=== PATIENT | female | born 1985 | race Hispanic/Latino ===

== ENCOUNTER 2021-04-28 00:35 | Emergency (ER) | payer SELFPAY ==
[2021-04-28 02:40] LABS: Absolute Lymphocytes (CBC) 0.9 K/uL (0.7-4.9); Hematocrit 40.5 % (36.0-45.0); Lymphocytes % 10.5 % (15.3-44.8); MPV 7.6 fL (7.6-11.3)
[2021-04-28 02:41] LABS: Urine Blood 1+ (Negative); Urine Glucose Negative (Negative); Urine Protein 1+ (Negative); Urine Specific Gravity >=1.030 (1.005-1.030)
[2021-04-28 02:44] LABS: Urine Specific Gravity/Preg >1.030 (1.005-1.030)
[2021-04-28] MEDS ORDERED: NA CHLORIDE 0.9% 1,000 ML ONE (02:50)
[2021-04-28] MEDS ORDERED: ONDANSETRON 4 MG/2 ML VIAL ONE (02:50)
[2021-04-28] MEDS ORDERED: FAMOTIDINE 20 MG/2 ML VIAL IV ONE (02:50)
[2021-04-28 02:57] LABS: ALT/SGPT 26 U/L (12-78); AST/SGOT 21 U/L (15-37); Albumin 3.6 g/dL (3.4-5.0); Alkaline Phosphatase 77 U/L (45-117); BUN Blood Urea Nitrogen 15 mg/dL (7-18); Bicarbonate 22 mmol/L (21-32); Bilirubin Total 0.4 mg/dL (0.2-1.0); Glucose Level 97 mg/dL (74-106); Lipase 86 U/L (73-393); Potassium 3.5 mmol/L (3.5-5.1); Protein, Total 7.7 g/dL (6.4-8.2); Sodium Level 139 mmol/L (136-145)
[2021-04-28 03:17] LABS: Urine Bacteria 20-50 /HPF (<20); Urine Mucus 1+ /HPF (NONE SEEN)
--- NOTE | 2021-04-28 04:21 | ER ---
Nurse's Notes [facility] Name: Chelsey Dso Santos Age: 35 yrs Sex: Female : 1985 Arrival Date: 04/28/2021 Time: 00:41 Bed 5 Private MD: Diagnosis: Diarrhea, unspecified;Nausea with vomiting, unspecified Presentation: 04/28 01:02 Chief complaint: Patient states: via language line, "I threw up 2 times today, I also vc1 am nauseous, have diarrhea, bodyaches and a headache.". Coronavirus screen: Vaccine status: Patient reports receiving the 2nd dose of the covid vaccine. no booster, pfizer diarrhea, headache, muscle pain, vomiting. Client presents with at least one sign or symptom that may indicate coronavirus-19. Standard/surgical mask placed on the client. Provider contacted for isolation considerations. Ebola Screen: No symptoms or risks identified at this time. Initial Sepsis Screen: Does the patient meet any 2 criteria? No. Patient's initial sepsis screen is negative. Does the patient have a suspected source of infection? No. Patient's initial sepsis screen is negative. Risk Assessment: Do you want to hurt yourself or someone else? Patient reports no desire to harm self or others. Onset of symptoms was April 28, 2021. 01:02 Method Of Arrival: Ambulatory vc1 01:02 Acuity: LANCE 3 vc1 Triage Assessment: 01:06 General: Appears in no apparent distress. uncomfortable, Behavior is calm, cooperative, vc1 appropriate for age. Pain: Complains of pain in abdomen Also complains of nausea. GI: Reports lower abdominal pain, upper abdominal pain, diarrhea, nausea, vomiting. 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 - Social history:: Smoking status: Patient denies any tobacco usage or history of. Screenin:37 Abuse screen: Denies threats or abuse. Nutritional screening: No deficits noted. st1 Tuberculosis screening: No symptoms or risk factors identified. Fall Risk None identified. No fall in past 12 months (0 pts). No secondary diagnosis (0 pts). No IV (0 pts). Ambulatory Aid- None/Bed Rest/Nurse Assist (0 pts). Gait- Normal/Bed Rest/Wheelchair (0 pts) Mental Status- Oriented to own ability (0 pts). Total Maxwell Fall Scale indicates No Risk (0-24 pts). Assessment: 01:37 GI: Reports nausea, vomiting. st1 04:03 GI: Abdomen is flat, Bowel sounds present X 4 quads. kd3 Vital Signs: 01:00 BP 126 / 76; Pulse 67; Resp 18; Pulse Ox 99% on R/A; st1 01:02 BP 119 / 88; Pulse 90; Resp 18; Temp 98.8; Pulse Ox 99% ; Weight 58.97 kg; Height 4 ft. vc1 11 in. (149.86 cm); 02:00 BP 125 / 68; Pulse 75; Resp 16; Pulse Ox 99% on R/A; st1 04:59 BP 126 / 81; Pulse 73; Resp 16; Pulse Ox 100% on R/A; st1 01:02 Body Mass Index 26.26 (58.97 kg, 149.86 cm) vc1 ED Course: 00:41 Patient arrived in ED. wm 01:06 Triage completed. vc1 01:07 Arm band placed on right wrist. vc1 01:37 No provider procedures requiring assistance completed. st1 01:43 Aiden Sandoval PA is PHCP. cp 01:43 Paco Rich MD is Attending Physician. cp 01:51 Anay Philippe, MADELEINE is Primary Nurse. kd3 02:19 assistant plant controller was called to interpret for AMEENA Sandoval and the RN. st1 02:42 Urine Microscopic Only Sent. st1 02:42 Lipase Sent. st1 02:42 CMP Sent. st1 02:42 CBC with Diff Sent. st1 03:39 CT Abd/Pelvis - IV Contrast Only In Process Unspecified. EDMS 03:54 COVID-19/FLU A+B (Document "Date of Onset" if Symptomatic) Sent. st1 05:03 Patient has correct armband on for positive identification. Bed in low position. Call st1 light in reach. Side rails up X 1. Pulse ox on. NIBP on. 05:03 IV discontinued, intact, bleeding controlled, No redness/swelling at site. Pressure st1 dressing applied. Administered Medications: 02:52 Drug: NS 0.9% 1000 ml Route: IV; Rate: 1 bolus; Site: right antecubital; st1 05:04 Follow up: Response: No adverse reaction st1 05:05 Follow up: IV Intake: 1000ml st1 05:05 Follow up: Response: No adverse reaction st1 02:52 Drug: Pepcid (famotidine) 20 mg Route: IVP; Site: right antecubital; st1 05:04 Follow up: Response: No adverse reaction st1 02:52 Drug: Zofran (Ondansetron) 4 mg Route: IVP; Site: right antecubital; st1 05:04 Follow up: Response: No adverse reaction st1 04:31 Drug: LoMOTIL (diphenoxylate-atropine) 2 tabs Route: PO; kd3 05:05 Follow up: Response: No adverse reaction st1 Intake: 05:05 IV: 1000ml; Total: 1000ml. st1 Outcome: 04:20 Discharge ordered by . cp 05:02 Discharged to home ambulatory, with family. st1 05:02 Condition: good 05:02 Discharge instructions given to patient, family, Instructed on discharge instructions, follow up and referral plans. no drinking with medication, medication usage. 05:06 Patient left the ED. st1 Signatures: Dispatcher [employer] EDMS Aiden Sandoval PA PA cp Marsh, Wendy wm Doucette, Kyli, RN RN kd3 Prema Eubanks RN RN st1 Candice Jarrett RN RN vc1 Corrections: (The following items were deleted from the chart) 05:02 03/17 21:00 BP 150 / 73; Pulse 65bpm; Resp 16bpm; Pulse Ox 100% RA; st1 st1
--- NOTE | 2021-04-28 04:21 | EDPHYS ---
Physician Documentation [facility] Name: Chelsey Dos Santos Age: 35 yrs Sex: Female : 1985 Arrival Date: 04/28/2021 Time: 00:41 Bed 5 Private MD: ED Physician Paco Rich HPI: 04/28 02:25 This 35 yrs old Female presents to ER via Ambulatory with complaints of cp Nausea/Vomiting/Diarrhea, Headache, Arm Pain - Left. 02:25 The patient presents to the emergency department with nausea, that is moderate, cp vomiting, that is intermittent, diarrhea, that is intermittent, abdominal pain, of the abdomen diffusely. Onset: The symptoms/episode began/occurred yesterday. Possible causes: sick contacts, by family, father, mother. Associated signs and symptoms: Pertinent positives: headache, left arm pain, Pertinent negatives: constipation, fever, GI bleeding. 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 - Social history:: Smoking status: Patient denies any tobacco usage or history of. ROS: 02:30 Constitutional: Negative for body aches, chills, fever, poor PO intake. cp 02:30 Cardiovascular: Negative for chest pain, edema, palpitations. cp 02:30 Respiratory: Negative for cough, shortness of breath, wheezing. 02:30 Abdomen/GI: Positive for abdominal pain, nausea, vomiting, and diarrhea, Negative for cp constipation, black/tarry stool, rectal bleeding. 02:30 ENT: Negative for drainage from ear(s), ear pain, sore throat, difficulty swallowing, cp difficulty handling secretions. 02:30 Back: Negative for radiated pain. 02:30 : Negative for urinary symptoms. 02:30 MS/extremity: Positive for pain, of the left arm, Negative for injury or acute deformity, paresthesias. 02:30 Neuro: Positive for headache, Negative for altered mental status, numbness, weakness. 02:30 All other systems are negative. Exam: 02:35 Constitutional: The patient appears in no acute distress, alert, awake, non-toxic, well cp developed, well nourished. 02:35 Head/Face: Normocephalic, atraumatic. cp 02:35 Eyes: Periorbital structures: appear normal, Conjunctiva: normal, no exudate, no injection, Sclera: no appreciated abnormality, Lids and lashes: appear normal, bilaterally. 02:35 ENT: External ear(s): are unremarkable, Nose: is normal, Mouth: Lips: moist, Oral mucosa: moist, Posterior pharynx: Airway: no evidence of obstruction, patent. 02:35 Neck: ROM/movement: is normal, is supple, without pain, no range of motions limitations, Lymph nodes: no appreciated lymphadenopathy. 02:35 Chest/axilla: Inspection: normal. 02:35 Cardiovascular: Rate: normal, Rhythm: regular. 02:35 Respiratory: the patient does not display signs of respiratory distress, Respirations: normal, no use of accessory muscles, no retractions, labored breathing, is not present, Breath sounds: are clear throughout, no decreased breath sounds, no stridor, no wheezing. 02:35 Abdomen/GI: Inspection: abdomen appears normal, Bowel sounds: active, all quadrants, Palpation: soft, in all quadrants, mild abdominal tenderness, in all quadrants. 02:35 Back: pain, is absent, ROM is normal. 02:35 Neuro: Orientation: to person, place \\T\\ time. Mentation: is normal, Motor: moves all fours, strength is normal, Sensation: is normal. Vital Signs: 01:00 BP 126 / 76; Pulse 67; Resp 18; Pulse Ox 99% on R/A; st1 01:02 BP 119 / 88; Pulse 90; Resp 18; Temp 98.8; Pulse Ox 99% ; Weight 58.97 kg; Height 4 ft. vc1 11 in. (149.86 cm); 02:00 BP 125 / 68; Pulse 75; Resp 16; Pulse Ox 99% on R/A; st1 04:59 BP 126 / 81; Pulse 73; Resp 16; Pulse Ox 100% on R/A; st1 01:02 Body Mass Index 26.26 (58.97 kg, 149.86 cm) vc1 MDM: 01:54 Patient medically screened. cp 03:00 Differential diagnosis: Nonspecific abd pain, gastritis, cholecystitis, appendicitis, cp viral gastroenteritis, gastroenteritis. 04:18 Data reviewed: vital signs, nurses notes, lab test result(s), radiologic studies, CT cp scan. Response to treatment: the patient's symptoms have markedly improved after treatment, and as a result, I will discharge patient. 04:20 Counseling: I had a detailed discussion with the patient and/or guardian regarding: the cp historical points, exam findings, and any diagnostic results supporting the discharge/admit diagnosis, lab results, to return to the emergency department if symptoms worsen or persist or if there are any questions or concerns that arise at home. 04:20 Special discussion: Based on the patient's Hx, exam, and Dx evaluation, there is no cp indication for emergent surgery or inpatient Tx. It is understood by the patient/guardian that if the Sx's persist or worsen they need to return immediately for re-evaluation. 04/28 02:18 Order name: CBC with Diff; Complete Time: 03:18 cp 04/28 03:18 Interpretation: Normal except: RUBIN% 77.3; LYM% 10.5. cp 04/28 02:18 Order name: CMP; Complete Time: 03:18 cp 04/28 03:19 Interpretation: Normal except: CL 110; CA 8.4; GLOB 4.1. cp 04/28 02:18 Order name: Lipase; Complete Time: 03:18 cp 04/28 02:18 Order name: Urine Microscopic Only; Complete Time: 03:42 cp 04/28 03:42 Interpretation: Normal except: UWBC 5-10; URBC 5-10; UBACT 20-50; SQEPI 20-50. cp 04/28 02:41 Order name: Urine Dipstick-Ancillary; Complete Time: 03:18 EDMS 04/28 03:18 Interpretation: Normal except: UKET Trace; UBLD 1+; UPROT 1+. cp 04/28 02:41 Order name: Urine --Ancillary (enter results); Complete Time: 03:18 mw2 04/28 02:18 Order name: CT Abd/Pelvis - IV Contrast Only cp 04/28 02:18 Order name: IV Saline Lock; Complete Time: 02:42 cp 04/28 02:18 Order name: Labs collected and sent; Complete Time: 02:42 cp 04/28 03:18 Order name: COVID-19/FLU A+B (Document "Date of Onset" if Symptomatic) cp 04/28 02:18 Order name: Urine Dipstick-Ancillary (obtain specimen); Complete Time: 02:42 cp 04/28 02:18 Order name: Urine Test (obtain specimen); Complete Time: 02:42 cp 04/28 04:21 Order name: PO challenge; Complete Time: 04:31 cp Administered Medications: 02:52 Drug: NS 0.9% 1000 ml Route: IV; Rate: 1 bolus; Site: right antecubital; st1 05:04 Follow up: Response: No adverse reaction st1 05:05 Follow up: IV Intake: 1000ml st1 05:05 Follow up: Response: No adverse reaction st1 02:52 Drug: Pepcid (famotidine) 20 mg Route: IVP; Site: right antecubital; st1 05:04 Follow up: Response: No adverse reaction st1 02:52 Drug: Zofran (Ondansetron) 4 mg Route: IVP; Site: right antecubital; st1 05:04 Follow up: Response: No adverse reaction st1 04:31 Drug: LoMOTIL (diphenoxylate-atropine) 2 tabs Route: PO; kd3 05:05 Follow up: Response: No adverse reaction st1 Disposition: 07:40 Co-signature as Attending Physician, Paco Rich MD I agree with the assessment and kdr plan of care. Disposition Summary: 04/28/21 04:20 Discharge Ordered Location: Home cp Problem: new cp Symptoms: have improved cp Condition: Stable cp Diagnosis - Diarrhea, unspecified cp - Nausea with vomiting, unspecified cp Followup: cp - With: Private Physician - When: 1 - 2 days - Reason: Worsening of condition Discharge Instructions: - Form - Excuse from Work, School, or Physical Activity bb - Discharge Summary Sheet cp - Food Choices to Help Relieve Diarrhea, Adult cp - Diarrhea, Adult cp - Nausea and Vomiting, Adult cp Forms: - Medication Reconciliation Form cp - Thank You Letter cp - Antibiotic Education cp - Prescription Opioid Use cp - Family Work Release bb Prescriptions: - Zofran 4 mg Oral Tablet - take 1 tablet by ORAL route every 12 hours As needed; 20 tablet; Refills: 0, cp Product Selection Permitted Signatures: Dispatcher [employer] Paco Hernandez MD MD kdr Aiden Sandoval PA PA cp Doucette, Kyli RN RN kd3 Prema Eubanks RN RN st1 Candice Jarrett RN RN vc1 Corrections: (The following items were deleted from the chart) 03:19 03:18 Normal except: CL 110. cp cp
[2021-04-28] MEDS ORDERED: DIPHENOX/ATROP SULF 1 TAB PO ONE (04:34)
[2021-04-28 04:44] LABS: SARS-COV-2 RT PCR NEGATIVE (NEGATIVE)
[2021-04-28 08:13] VITALS: TEMP 98.8
[2021-04-28 08:16] VITALS: BP 126/81; O2SAT 100
--- NOTE | 2021-04-28 11:55 | RAD REPORT ---
EXAM DESCRIPTION: CT - Abdomen Pelvis W Contrast - 04/28/2021 6:12 am CLINICAL HISTORY: 35 years, Female, ABD PAIN COMPARISON: None. TECHNIQUE: Contrast-enhanced images of the abdomen and pelvis were performed utilizing 5 mm slice th ickness at 5 mm interval reconstruction from the lung bases to the ischial tuberosities after the adm inistration IV contrast. In addition multiplanar reformats in the coronal and sagittal plane were obtained and reviewed. This exam was performed according to our departmental dose-optimization protocol, which includes auto mated exposure control, adjustment of the mA and/or kV according to patient size and/or use of iterat carlos reconstruction technique. FINDINGS: The lung bases demonstrate to be clear. There are minimal dependent atelectatic changes po sterior CP angles The liver, gallbladder, pancreas, spleen and adrenal glands demonstrate to be unremarkable, no focal lesions are noted. The kidneys demonstrate normal uptake of contrast media. No evidence for nephrolithiasis and/or hydro nephrosis. Grossly the unopacified stomach, small bowel and large bowel demonstrate to be within normal limits. There is no evidence for bowel dilatation and/or free air. There is fluid-filled large bowel in mos t its entirety perhaps suggesting the possibility of intermittent diarrhea. The appendix is normal. The urinary bladder demonstrate to be unremarkable. The uterus demonstrate the presence of a tiny l eft mid body anterior parenchymal measuring 1.1 cm perhaps corresponding to a uterine fibroid. There are no adnexal masses. The aorta demonstrate to be normal. Incidentally is noted presence of a retr ocardiac left renal vein There is no retroperitoneal lymphadenopathy. There is no evidence for asci tao or and/or significant abnormal fluid collections. The rest of the soft tissue and bony structures are within normal limits. IMPRESSION: Fluid-filled large bowel in most its entirety perhaps suggesting the possibility of inte rmittent diarrhea. Small uterine fibroid. Otherwise unremarkable CT scan of the abdomen and pelvis with contrast. Electronically signed by: Lane Peng MD 04/28/2021 4:08 AM CDT Due to temporary technical issues with the PACS/Fluency reporting system, reports are being signed by the in house radiologist without review as a courtesy to ensure prompt reporting. The interpreting r adiologist is fully responsible for the content of the report.
== END 2021-04-28 05:06 | disposition home or self-care (01) ==
LOC: ER 00:35
DX: R11.2 Nausea with vomiting, unspecified (principal); R19.7 Diarrhea, unspecified; R51.9 Headache, unspecified; M79.602 Pain in left arm; Z20.822 Contact with and (suspected) exposure to COVID-19
CPT/HCPCS: 0240U; 36415; 74177; 80053; 81003; 81015; 81025; 83690; 85025; 96374; 96375; 99284; J2405; J7030; Q9967

== ENCOUNTER 2023-12-17 16:25 | Emergency (ER) | payer SELFPAY ==
--- OUTSIDE RECORDS SUMMARY | 2023-12-17 16:29 | XMS REPORT | Continuity of Care Document ---
Author Name Unknown Address [address] [facility] [address] [place] [address] [facility] thconnect Address [address] [facility] 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 Role Phone Deya Farmer CNM Primary Care Physician + Doctor Unassigned, [place] Attending Clinician U navailable Virginia Coulter Attending Clinician + VIRGINIA NAVARRO Attending Clinician Unavail able Virginia Coulter Attending Clinician + DEYA FARMER Attending Clinician Deya Lovell CNM Attending Clinician [phone] Visit, Margarita Nurse Attending Clinician Unava iljuan josé Doctor Unassigned, [place] Attending Clinician U maryailjuan josé [facility] Attending Clini CHELSEY Christy Attending Clinician Unavailable [facility] Zulma praveena Dorado SHOER, Chelsey Attending Clinician [phone] Lavell SALVADOR, Kota Attending Clinician Unavailab AARON Benites Attending Clinician UnavailHolland KING, Jeff Melendze Attending Clinician + [phone] JEFF COPELAND Attending Clinician Unavailab mejia Akers MD, Ирина Attending Clinician + [facility] Attending Clinician Un available Jonny Medrano MD Attending Clinician [phone] Payers Payer Name Policy Type Policy Number Effective Date Expirati on Date Source Problems Condition Name Condition Details Condition Category Status Onset Date Resolution Date Last Treatment Date Treating Clinician Comments Source Need for HPV vaccinatio n Need for HPV vaccinatio n Disease Active 3- 00:00: 00 [facility] Other general counseling and advice for contracept carlos management Other general counseling and advice for contracept carlos management Disease Active 9- 00:00: 00 [facility] History of abnormal cervical Pap smear History of abnormal cervical Pap smear Disease Active - 00:00: 00 Overview: Formattin g of this note might be different from the original. 2016 negative PAP +[id number] negative PAP +[id number] negative PAP +HPV, negative [id number] negative PAP and [id number] negative PAP and HPV, repeat [address] [facility] Abnormal glandular Papanicola ou smear of cervix Abnormal glandular Papanicola ou smear of cervix Disease Active 5- 00:00: 00 [facility] Encounter for surveillan ce of contracept carlos pills Encounter for surveillan ce of contracept carlos pills Disease Active 5-06 00:00: 00 [facility] Overweight (BMI 25.0-29.9) Overweight (BMI 25.0-29.9) Disease Active 8-16 00:00: 00 [facility] Bilateral deafness Bilateral deafness Disease Active 2013-02 1-04 00:00: 00 Overview: Formattin g of this note might be different from the original. Due to fever in childhood . Patient with interpret er [facility] Well woman exam Well woman exam Disease Resolve d 06-16 00:00: 00 2022-06-23 00:00:00 2022-06-23 13:12:30 [facility] Cervical high risk human papillomav irus (HPV) DNA test positive Cervical high risk human papillomav irus (HPV) DNA test positive Disease Resolve d 07-30 00:00: 00 2022-06-20 00:00:00 2022-06-20 09:10:58 Overview: Formattin g of this note might be different from the original. Needs repeat pap with co-testin g in 1 year (07/2018) [facility] Pain pelvic Pain pelvic Disease Resolve d 2013-02 00:00: 00 2022-06-20 00:00:00 2022-06-20 09:27:37 Overview: Formattin g of this note might be different from the original. ULTRASOUN D PELVIC COMPLETE - 01/15/14IM PRESSION: Unremarka ble pelvic ultrasoun d [facility] Single live Single live Disease Resolve d 2018- 3-26 00:00: 00 2018-06-16 00:00:00 2018-06-16 15:59:53 [facility] 39 weeks gestation of 39 weeks gestation of Disease Resolve d 2018- 3-25 00:00: 00 2018-06-16 00:00:00 2018-06-16 15:59:50 [facility] Labor and delivery indication for care or interventi on Labor and delivery indication for care or interventi on Disease Resolve d 2018-0 3-25 00:00: 00 2018-06-16 00:00:00 2018-06-16 16:00:01 [facility] Disease Resolve d 2018-0 3-25 00:00: 00 2018-06-16 00:00:00 2018-06-16 15:59:48 [facility] Normal spontaneou s vaginal delivery Normal spontaneou s vaginal delivery Disease Resolve d 2018-0 3-25 00:00: 00 2018-06-16 00:00:00 2018-06-16 15:59:58 [facility] Laceration , obstetrica l, second degree Laceration , obstetrica l, second degree Disease Resolve d 25 00:00: 00 2018-06-16 00:00:00 2018-06-16 16:02:52 [facility] Primigravi da in third trimester Primigravi da in third trimester Disease Resolve d 2017-02- 00:00: 00 2018-06-16 00:00:00 2018-06-16 15:59:55 [facility] Supervisio n of high risk , antepartum Supervisio n of high risk , antepartum Disease Resolve d 09-26 00:00: 00 2018-06-16 00:00:00 2018-06-16 16:02:49 [facility] UTI in , antepartum UTI in , antepartum Disease Resolve d 09-26 00:00: 00 2018-05-05 00:00:00 2018-05-05 07:50:19 [facility] Cervical high risk human papillomav irus (HPV) DNA test positive Cervical high risk human papillomav irus (HPV) DNA test positive Disease Resolve d 2016-0218 00:00: 00 2018-03-10 00:00:00 2018-03-10 12:59:50 [facility] Screening for STD (sexually transmitte d disease) Screening for STD (sexually transmitte d disease) Disease Resolve d 2016-02 00:00: 00 2018-03-10 00:00:00 2018-03-10 12:59:46 [facility] Rib pain on left side Rib pain on left side Disease Resolve d 06-15 00:00: 00 2017-07-23 00:00:00 2017-07-23 11:43:24 [facility] Dysmenorrh ea Dysmenorrh ea Disease Resolve d 02-16 00:00: 00 2017-07-23 00:00:00 2017-07-23 11:43:19 [facility] Surveillan ce of previously prescribed contracept carlos pill Surveillan ce of previously prescribed contracept carlos pill Disease Resolve d 06-15 00:00: 00 2015-02-15 00:00:00 2015-02-15 12:22:23 [facility] OCP (oral contracept carlos pills) initiation OCP (oral contracept carlos pills) initiation Disease Resolve d 02-16 00:00: 00 2014-06-15 00:00:00 2014-06-15 14:18:02 [facility] Other general counseling and advice for contracept carlos management Other general counseling and advice for contracept carlos management Disease Resolve d 2013-02 00:00: 00 2014-06-15 00:00:00 2014-06-15 14:17:58 [facility] Allergies, Adverse Reactions, Alerts Allergy Name Allergy Type Status Severity Reaction(s) Onset Date Inactive Date Treating Clinician Comments Source NO KNOWN ALLERGIE S Drug Class Active [facility] Social History Social Habit Start Date Stop Date Quantity Comments Source Gender identity [facility] function 2023-06-24 00:00:00 2023-06-24 00:00:00 [facility] Alcoholic beverage intake 2023-06-24 00:00:00 2023-06-24 00:00:00 Current non-drinker of alcohol (finding) [facility] Alcohol intake 2022-10-29 00:00:00 2022-10-29 00:00:00 Current non-drinker of alcohol (finding) [facility] Exposure to SARS-CoV-2 (event) 2022-06-10 00:00:00 2022-06-20 09:08:00 Not sure [facility] Tobacco use and exposure 2022-06-20 00:00:00 2022-06-20 00:00:00 Smokeless tobacco non-user [facility] Sex assigned at 1985 00:00:00 1985 00:00:00 [facility] Smoking Status Start Date Stop Date Source Never smoked tobacco [facility] Medications Ordered Medication Name Filled Medication Name Start Date Stop Date Current Medication? Ordering Clinician Indication Dosage Frequency Signature (SIG) Comments Components Source norethindro ne-e.estrad ioL-iron (JUNEL FE 1.5/30, 28,) 1.5 mg-30 mcg (21)/75 mg (7) per tablet 06-20 00:00: 00 Yes [id number] 1{tbl} Take 1 tablet by mouth in the morning. [facility] levonorgest rel-ethinyl estradiol (ORSYTHIA) 0.1-20 mg-mcg per tablet 06-20 00:00: 00 06-20 00:00 :00 No [id number] 1{tbl} Take 1 tablet by mouth daily. [facility] levonorgest rel-ethinyl estradiol (ORSYTHIA) 0.1-20 mg-mcg per tablet 05-19 00:00: 00 06-20 00:00 :00 No [id number] 1{tbl} Take 1 tablet by mouth daily. [facility] Immunizations Ordered Immunization Name Filled Immunization Name Date Status Comments Source HPV9 2022-10-22 00:00:00 Completed [facility] HPV9 2022-10-22 00:00:00 Completed [facility] HPV9 2022-10-22 00:00:00 Completed [facility] Influenza Virus Vaccine Quad .5 mL IM 6+ MO 2021-12-22 00:00:00 Completed [facility] Influenza Virus Vaccine Quad .5 mL IM 6+ MO 2021-12-22 00:00:00 Completed [facility] Influenza Virus Vaccine Quad .5 mL IM 6+ MO 2021-12-22 00:00:00 Completed [facility] Influenza Virus Vaccine Quad .5 mL IM 6+ MO 2021-12-22 00:00:00 Completed [facility] Influenza Virus Vaccine Quad .5 mL IM 6+ MO 2021-12-22 00:00:00 Completed [facility] Influenza Virus Vaccine Quad .5 mL IM 6+ MO 2021-12-22 00:00:00 Completed [facility] Influenza Virus Vaccine Quad .5 mL IM 6+ MO (FLUZONE/FLULAVAL/F LUARIX) 2021-12-22 00:00:00 Completed [facility] Influenza Virus Vaccine Quad .5 mL IM 6+ MO (FLUZONE/FLULAVAL/F LUARIX) 2021-12-22 00:00:00 Completed [facility] Influenza Virus Vaccine Quad .5 mL IM 6+ MO (FLUZONE/FLULAVAL/F LUARIX) 2021-12-22 00:00:00 Completed [facility] Varicella (varivax)(chicken pox) 2021-04-07 00:00:00 Completed [facility] Varicella (varivax)(chicken pox) 2021-04-07 00:00:00 Completed [facility] Varicella (varivax)(chicken pox) 2021-04-07 00:00:00 Completed [facility] Varicella (varivax)(chicken pox) 2021-04-07 00:00:00 Completed [facility] Varicella (varivax)(chicken pox) 2021-04-07 00:00:00 Completed [facility] Varicella (varivax)(chicken pox) 2021-04-07 00:00:00 Completed [facility] Influenza Virus Vaccine Quad .5 mL IM 6+ MO 2021-02-08 00:00:00 Completed [facility] Influenza Virus Vaccine Quad .5 mL IM 6+ MO 2021-02-08 00:00:00 Completed [facility] Influenza Virus Vaccine Quad .5 mL IM 6+ MO 2021-02-08 00:00:00 Completed [facility] Influenza Virus Vaccine Quad .5 mL IM 6+ MO (FLUZONE/FLULAVAL/F LUARIX) 2021-02-08 00:00:00 Completed [facility] Influenza Virus Vaccine Quad .5 mL IM 6+ MO (FLUZONE/FLULAVAL/F LUARIX) 2021-02-08 00:00:00 Completed [facility] Influenza Virus Vaccine Quad .5 mL IM 6+ MO (FLUZONE/FLULAVAL/F LUARIX) 2021-02-08 00:00:00 Completed [facility] SARS-COV-2 COVID-19 PFIZER VACCINE 2020-11-04 00:00:00 Completed [facility] SARS-COV-2 COVID-19 PFIZER VACCINE 2020-11-04 00:00:00 Completed [facility] SARS-COV-2 COVID-19 PFIZER VACCINE 2020-11-04 00:00:00 Completed [facility] SARS-COV-2 COVID-19 PFIZER VACCINE 2020-11-04 00:00:00 Completed [facility] SARS-COV-2 COVID-19 PFIZER VACCINE 2020-11-04 00:00:00 Completed [facility] SARS-COV-2 COVID-19 PFIZER VACCINE 2020-11-04 00:00:00 Completed [facility] SARS-COV-2 COVID-19 PFIZER VACCINE 2020-10-14 00:00:00 Completed [facility] SARS-COV-2 COVID-19 PFIZER VACCINE 2020-10-14 00:00:00 Completed [facility] SARS-COV-2 COVID-19 PFIZER VACCINE 2020-10-14 00:00:00 Completed [facility] SARS-COV-2 COVID-19 PFIZER VACCINE 2020-10-14 00:00:00 Completed [facility] SARS-COV-2 COVID-19 PFIZER VACCINE 2020-10-14 00:00:00 Completed [facility] SARS-COV-2 COVID-19 PFIZER VACCINE 2020-10-14 00:00:00 Completed [facility] Influenza Virus Vaccine Quad .5 mL IM 6+ MO 2019-04-15 00:00:00 Completed [facility] Influenza Virus Vaccine Quad .5 mL IM 6+ MO 2019-04-15 00:00:00 Completed [facility] Influenza Virus Vaccine Quad .5 mL IM 6+ MO 2019-04-15 00:00:00 Completed [facility] Influenza Virus Vaccine Quad .5 mL IM 6+ MO 2019-04-15 00:00:00 Completed [facility] Influenza Virus Vaccine Quad .5 mL IM 6+ MO 2019-04-15 00:00:00 Completed [facility] Influenza Virus Vaccine Quad .5 mL IM 6+ MO 2019-04-15 00:00:00 Completed [facility] Influenza Virus Vaccine Quad .5 mL IM 6+ MO 2019-04-15 00:00:00 Completed [facility] Influenza Virus Vaccine Quad .5 mL IM 6+ MO 2019-04-15 00:00:00 Completed [facility] Influenza Virus Vaccine Quad .5 mL IM 6+ MO 2019-04-15 00:00:00 Completed [facility] Influenza Virus Vaccine Quad .5 mL IM 6+ MO 2019-04-15 00:00:00 Completed [facility] Influenza Virus Vaccine Quad .5 mL IM 6+ MO (FLUZONE/FLULAVAL/F LUARIX) 2019-04-15 00:00:00 Completed [facility] Influenza Virus Vaccine Quad .5 mL IM 6+ MO (FLUZONE/FLULAVAL/F LUARIX) 2019-04-15 00:00:00 Completed [facility] Influenza Virus Vaccine Quad .5 mL IM 6+ MO (FLUZONE/FLULAVAL/F LUARIX) 2019-04-15 00:00:00 Completed [facility] TDAP 2018-02-24 00:00:00 Completed [facility] Influenza Virus Vaccine 2018-02-24 00:00:00 Completed [facility] TDAP 2018-02-24 00:00:00 Completed [facility] Influenza Virus Vaccine 2018-02-24 00:00:00 Completed [facility] TDAP 2018-02-24 00:00:00 Completed [facility] Influenza Virus Vaccine 2018-02-24 00:00:00 Completed [facility] TDAP 2018-02-24 00:00:00 Completed [facility] Influenza Virus Vaccine 2018-02-24 00:00:00 Completed [facility] TDAP 2018-02-24 00:00:00 Completed [facility] Influenza Virus Vaccine 2018-02-24 00:00:00 Completed [facility] TDAP 2018-02-24 00:00:00 Completed [facility] Influenza Virus Vaccine 2018-02-24 00:00:00 Completed [facility] TDAP 2018-02-24 00:00:00 Completed [facility] Influenza Virus Vaccine 2018-02-24 00:00:00 Completed [facility] TDAP 2018-02-24 00:00:00 Completed [facility] Influenza Virus Vaccine 2018-02-24 00:00:00 Completed [facility] TDAP 2018-02-24 00:00:00 Completed [facility] Influenza Virus Vaccine 2018-02-24 00:00:00 Completed [facility] TDAP 2018-02-24 00:00:00 Completed [facility] Influenza Virus Vaccine 2018-02-24 00:00:00 Completed [facility] TDAP 2018-02-24 00:00:00 Completed [facility] Influenza Virus Vaccine 2018-02-24 00:00:00 Completed [facility] TDAP 2018-02-24 00:00:00 Completed [facility] Influenza Virus Vaccine 2018-02-24 00:00:00 Completed [facility] TDAP 2018-02-24 00:00:00 Completed [facility] Influenza Virus Vaccine 2018-02-24 00:00:00 Completed [facility] TDAP 2013-12-15 00:00:00 Completed [facility] TDAP 2013-12-15 00:00:00 Completed [facility] TDAP 2013-12-15 00:00:00 Completed [facility] TDAP 2013-12-15 00:00:00 Completed [facility] TDAP 2013-12-15 00:00:00 Completed [facility] TDAP 2013-12-15 00:00:00 Completed [facility] TDAP 2013-12-15 00:00:00 Completed [facility] TDAP 2013-12-15 00:00:00 Completed [facility] TDAP 2013-12-15 00:00:00 Completed [facility] TDAP 2013-12-15 00:00:00 Completed [facility] TDAP 2013-12-15 00:00:00 Completed [facility] TDAP 2013-12-15 00:00:00 Completed [facility] TDAP 2013-12-15 00:00:00 Completed [facility] TDAP Unknown Completed [facility] Influenza Virus Vaccine Unknown Completed [facility] Influenza Virus Vaccine Quad .5 mL IM 6+ MO (FLUZONE/FLULAVAL/F LUARIX) Unknown Completed [facility] SARS-COV-2 COVID-19 PFIZER VACCINE Unknown Completed [facility] Varicella (varivax)(chicken pox) Unknown Completed [facility] HPV9 Unknown Completed [facility] TDAP Unknown Completed [facility] Influenza Virus Vaccine Unknown Completed [facility] Influenza Virus Vaccine Quad .5 mL IM 6+ MO (FLUZONE/FLULAVAL/F LUARIX) Unknown Completed [facility] SARS-COV-2 COVID-19 PFIZER VACCINE Unknown Completed [facility] Varicella (varivax)(chicken pox) Unknown Completed [facility] HPV9 Unknown Completed [facility] TDAP Unknown Completed [facility] Influenza Virus Vaccine Unknown Completed [facility] Influenza Virus Vaccine Quad .5 mL IM 6+ MO (FLUZONE/FLULAVAL/F LUARIX) Unknown Completed [facility] SARS-COV-2 COVID-19 PFIZER VACCINE Unknown Completed [facility] Varicella (varivax)(chicken pox) Unknown Completed [facility] HPV9 Unknown Completed [facility] TDAP Unknown Completed [facility] Influenza Virus Vaccine Unknown Completed [facility] Influenza Virus Vaccine Quad .5 mL IM 6+ MO (FLUZONE/FLULAVAL/F LUARIX) Unknown Completed [facility] SARS-COV-2 COVID-19 PFIZER VACCINE Unknown Completed [facility] Varicella (varivax)(chicken pox) Unknown Completed [facility] HPV9 Unknown Completed [facility] TDAP Unknown Completed [facility] Influenza Virus Vaccine Unknown Completed [facility] Influenza Virus Vaccine Quad .5 mL IM 6+ MO (FLUZONE/FLULAVAL/F LUARIX) Unknown Completed [facility] SARS-COV-2 COVID-19 PFIZER VACCINE Unknown Completed [facility] Varicella (varivax)(chicken pox) Unknown Completed [facility] HPV9 Unknown Completed [facility] TDAP Unknown Completed [facility] Influenza Virus Vaccine Unknown Completed [facility] Influenza Virus Vaccine Quad .5 mL IM 6+ MO (FLUZONE/FLULAVAL/F LUARIX) Unknown Completed [facility] SARS-COV-2 COVID-19 PFIZER VACCINE Unknown Completed [facility] Varicella (varivax)(chicken pox) Unknown Completed [facility] HPV9 Unknown Completed [facility] TDAP Unknown Completed [facility] Influenza Virus Vaccine Unknown Completed [facility] Influenza Virus Vaccine Quad .5 mL IM 6+ MO (FLUZONE/FLULAVAL/F LUARIX) Unknown Completed [facility] SARS-COV-2 COVID-19 PFIZER VACCINE Unknown Completed [facility] Varicella (varivax)(chicken pox) Unknown Completed [facility] HPV9 Unknown Completed [facility] TDAP Unknown Completed [facility] Influenza Virus Vaccine Unknown Completed [facility] Influenza Virus Vaccine Quad .5 mL IM 6+ MO (FLUZONE/FLULAVAL/F LUARIX) Unknown Completed [facility] SARS-COV-2 COVID-19 PFIZER VACCINE Unknown Completed [facility] Varicella (varivax)(chicken pox) Unknown Completed [facility] HPV9 Unknown Completed [facility] TDAP Unknown Completed [facility] Influenza Virus Vaccine Unknown Completed [facility] Influenza Virus Vaccine Quad .5 mL IM 6+ MO (FLUZONE/FLULAVAL/F LUARIX) Unknown Completed [facility] SARS-COV-2 COVID-19 PFIZER VACCINE Unknown Completed [facility] Varicella (varivax)(chicken pox) Unknown Completed [facility] HPV9 Unknown Completed [facility] TDAP Unknown Completed [facility] Influenza Virus Vaccine Unknown Completed [facility] Influenza Virus Vaccine Quad .5 mL IM 6+ MO (FLUZONE/FLULAVAL/F LUARIX) Unknown Completed [facility] SARS-COV-2 COVID-19 PFIZER VACCINE Unknown Completed [facility] Varicella (varivax)(chicken pox) Unknown Completed [facility] HPV9 Unknown Completed [facility] TDAP Unknown Completed [facility] Influenza Virus Vaccine Unknown Completed [facility] Influenza Virus Vaccine Quad .5 mL IM 6+ MO (FLUZONE/FLULAVAL/F LUARIX) Unknown Completed [facility] SARS-COV-2 COVID-19 PFIZER VACCINE Unknown Completed [facility] Varicella (varivax)(chicken pox) Unknown Completed [facility] HPV9 Unknown Completed [facility] Vital Signs Vital Name Observation Time Observation Value Comments S ource Systolic blood pressure 2023-08-26 12:06:00 128 mm[Hg] [facility] Diastolic blood pressure 2023-08-26 12:06:00 86 mm[Hg] [facility] Heart rate 2023-08-26 12:06:00 86 /min Unive [facility] Body temperature 2023-08-26 12:06:00 36.61 Maggy [facility] Respiratory rate 2023-08-26 12:06:00 16 /min [facility] Body height 2023-08-26 12:06:00 149.9 cm [facility] Body weight 2023-08-26 12:06:00 63.821 kg [facility] BMI 2023-08-26 12:06:00 28.42 kg/m2 [facility] Systolic blood pressure 2023-06-24 12:57:00 133 mm[Hg] [facility] Diastolic blood pressure 2023-06-24 12:57:00 85 mm[Hg] [facility] Heart rate 2023-06-24 12:57:00 85 /min [facility] Body temperature 2023-06-24 12:57:00 36.33 Maggy [facility] Respiratory rate 2023-06-24 12:57:00 17 /min [facility] Body height 2023-06-24 12:57:00 149.9 cm [facility] Body weight 2023-06-24 12:57:00 62.097 kg [facility] BMI 2023-06-24 12:57:00 27.65 kg/m2 [facility] Body temperature 2023-02-28 21:35:00 36.67 Maggy [facility] Body temperature 2022-11-26 13:21:00 36.44 Maggy [facility] Systolic blood pressure 2022-10-29 15:18:00 130 mm[Hg] [facility] Diastolic blood pressure 2022-10-29 15:18:00 83 mm[Hg] [facility] Heart rate 2022-10-29 15:18:00 70 /min [facility] Body temperature 2022-10-29 15:18:00 36.44 Maggy [facility] Respiratory rate 2022-10-29 15:18:00 18 /min [facility] Body height 2022-10-29 15:18:00 149[facility] 2022-10-29 15:18:00 59.676 kg [facility] BMI 2022-10-29 15:18:00 26.57 kg/m2 [facility] Systolic blood pressure 2022-10-22 13:31:00 132 mm[Hg] [facility] Diastolic blood pressure 2022-10-22 13:31:00 86 mm[Hg] [facility] Heart rate 2022-10-22 13:31:00 69 /min [facility] Body temperature 2022-10-22 13:31:00 35.78 Maggy [facility] Respiratory rate 2022-10-22 13:31:00 18 /min [facility] Body height 2022-10-22 13:31:00 149[facility] 2022-10-22 13:31:00 59.104 kg [facility] BMI 2022-10-22 13:31:00 26.32 kg/m2 [facility] [facility] Systolic blood pressure 2022-06-20 14:08:00 115 mm[Hg] [facility] Diastolic blood pressure 2022-06-20 14:08:00 79 mm[Hg] [facility] Heart rate 2022-06-20 14:08:00 74 /[facility] 2022-06-20 14:08:00 36.72 Maggy [facility] Respiratory rate 2022-06-20 14:08:00 18 /min [facility] Body height 2022-06-20 14:08:00 149.9 cm [facility] Body weight 2022-06-20 14:08:00 61.774 kg Univ [facility] BMI 2022-06-20 14:08:00 27.51 kg/m2 Univ [facility] Systolic blood pressure 2022-04-23 14:35:00 119 mm[Hg] [facility] Diastolic blood pressure 2022-04-23 14:35:00 83 mm[Hg] [facility] Heart rate 2022-04-23 14:35:00 81 /min [facility] Body [facility] 2022-04-23 14:35:00 36.5 Maggy [facility] Respiratory rate 2022-04-23 14:35:00 18 /min [facility] Body height 2022-04-23 14:35:00 149.9 cm [facility] Body weight 2022-04-23 14:35:00 63.413 kg Univ [facility] BMI 2022-04-23 14:35:00 28.24 kg/m2 [facility] Sy[facility] 2022-01-15 15:31:00 117 mm[Hg] [place] [facility] Diastolic blood pressure 2022-01-15 15:31:00 78 mm[Hg] [facility] Heart rate 2022-01-15 15:31:00 83 /min Unive [facility] Body temperature 2022-01-15 15:31:00 36.22 Maggy [facility] Respiratory rate 2022-01-15 15:31:00 17 /min [facility] Body height 2022-01-15 15:31:00 149.9 cm Univ [facility] Body weight 2022-01-15 15:31:00 62.007 kg Univ [facility] BMI 2022-01-15 15:31:00 27.61 kg/m2 Univ [facility] Systolic blood pressure 2021-12-22 14:13:00 118 mm[Hg] [facility] Diastolic blood pressure 2021-12-22 14:13:00 77 mm[Hg] [facility] Heart rate 2021-12-22 14:13:00 69 /min Unive [facility] Body temperature 2021-12-22 14:13:00 36.72 Maggy [facility] Respiratory rate 2021-12-22 14:13:00 20 /min [facility] Body height 2021-12-22 14:13:00 149.9 cm [facility] Body weight 2021-12-22 14:13:00 62.642 kg [facility] BMI 2021-12-22 14:13:00 27.89 kg/m2 [facility] Systolic blood pressure 2021-11-27 18:44:00 126 mm[Hg] [facility] Diastolic blood pressure 2021-11-27 18:44:00 85 mm[Hg] [facility] Heart rate 2021-11-27 18:44:00 85 /min Unive [facility] Body temperature 2021-11-27 18:44:00 36.94 Maggy [facility] Body height 2021-11-27 18:44:00 149.9 cm [facility] Body weight 2021-11-27 18:44:00 62.234 kg [facility] BMI 2021-11-27 18:44:00 27.71 kg/m2 [facility] Systolic blood pressure 2021-06-20 14:39:00 121 mm[Hg] [facility] Diastolic blood pressure 2021-06-20 14:39:00 79 mm[Hg] [facility] Heart rate 2021-06-20 14:39:00 79 /min [facility] Body temperature 2021-06-20 14:39:00 36.61 Maggy [facility] Respiratory rate 2021-06-20 14:39:00 20 /min [facility] Body height 2021-06-20 14:39:00 149.9 cm [facility] Body weight 2021-06-20 14:39:00 60.011 kg [facility] BMI 2021-06-20 14:39:00 26.72 kg/m2 [facility] Procedures Procedure Date / Time Performed Performing Clinician Source BI ULTRASOUND BREAST COMPLETE LEFT 2023-09-26 14:59:43 Virginia Navarro [facility] BI DIAGNOSTIC TOMOSYNTHESIS BILATERAL 2023-09-26 14:02:21 Virginia Navarro [facility] "RWSP SÁNCHEZ ONLY" FLU VACC([id number]), 6+ MONTHS, IM, QUAD (FLUZONE/FLULAVAL/FLUARI X) 2023-02-28 21:22:35 Deya Farmer [facility] ASSIGNMENT OF BENEFITS 2023-02-28 21:10:00 Docto r Unassigned, [place] [facility] GARDASIL 9 (HPV 9V) VACCINE 2022-11-26 13:21:36 Virginia Navarro [facility] POCT TEST 2022-10-29 17:51:00 Chelsey Dorado [facility] POCT URINALYSIS W/O SPECIFIC GRAVITY 2022-10-29 15:23:00 Chelsey Dorado [facility] PROLACTIN 2022-10-22 14:04:00 Virginia Navarro [facility] THYROID STIMULATING HORMONE 2022-10-22 14:04:00 Virginia Navarro [facility] GARDASIL 9 (HPV 9V) VACCINE 2022-10-22 13:46:48 Virginia Navarro [facility] POCT TEST 2022-10-22 13:34:00 Asif Navarro [facility] THYROID STIMULATING HORMONE 2022-06-20 15:06:00 Deya Farmer [facility] LIPID PANEL (44971)(TOTAL CHOLESTEROL, TRIGLYCERIDES, HDL) 2022-06-20 15:06:00 Deya Farmer [facility] CBC WITH DIFF 2022-06-20 15:06:00 Deya Farmer [facility] GLYCOSYLATED HEMOGLOBIN (A1C) 2022-06-20 15:06:00 Deya Farmer [facility] "RWSP SÁNCHEZ ONLY" FLU VACC(), 6+ MONTHS, IM, QUAD (FLUZONE/FLULAVAL/FLUARI X) 2021-12-22 14:23:19 Virginia Navarro [facility] ASSIGNMENT OF BENEFITS 2021-11-27 17:33:56 Docto r Unassigned, [place] [facility] GC & CHLAMYDIA AMPLIFIED ASSAY 2021-06-20 15:17:00 Virginia Navarro [facility] HIV 1/2 AG-AB WITH REFLEX 2021-06-20 15:17:00 Virginia Navarro [facility] PAP SMEAR-LIQUID BASED-CP 2021-06-20 15:17:00 Virginia Navarro [facility] GALV ONLY - SYPHILIS IGG/IGM 2021-06-20 15:17:00 Virginia Navarro [facility] Encounters Start Date/Time End Date/Time Encounter Type Admission Type Attending [facility] Care Facility Care Department Encounter ID Source 2023-09-04 00:00:00 2023-10-05 18:19:20 Patient Secure Msg Doctor Unassigned, [place] Doctor Unassigned, [place] [facility] 1.840.114 350.1.13.10 4.2.7.2.[id number] [facility] 2023-09-26 08:27:22 2023-09-26 23:59:00 Hospital Encounter Virginia Navarro [facility] 1.0.114 350.1.13.10 4.2.7.2.[id number] [facility] 2023-09-26 08:00:00 2023-09-26 08:26:00 Outpatient R VIRGINIA NAVARRO [facility] [id number] [facility] 2023-09-26 08:00:00 2023-09-26 08:26:00 Hospital Encounter Virginia Navarro [facility] 1.0.114 350.1.13.10 4.2.7.2.[id number] [facility] 2023-08-29 00:00:00 2023-09-03 15:11:29 Telephone Virginia Navarro [facility] POSITION CLASSIFICATION SPECIALIST [facility] 1.2840.114 350.1.13.10 4.2.7.2.[id number] [facility] 2023-08-29 08:00:00 2023-08-29 08:00:00 Outpatient R DEYA FARMER [facility] [id number] [facility] 2023-08-26 07:00:00 2023-08-26 07:20:16 Outpatient R VIRGINIA NAVARRO [facility] [id number] [facility] 2023-08-26 07:00:00 2023-08-26 07:20:16 Office Visit Virginia Navarro [facility] POSITION CLASSIFICATION SPECIALIST [facility] & CHILD [facility] 1.840.114 350.1.13.10 4.2.7.2.[id number] [facility] 2023-08-19 08:00:00 2023-08-19 08:00:00 Outpatient R VIRGINIA NAVARRO [facility] [id number] [facility] 2023-07-02 00:00:00 2023-07-02 16:46:13 Telephone Deya Farmer [facility] POSITION CLASSIFICATION SPECIALIST [facility] & CHILD [facility] 1.840.114 350.1.13.10 4.2.7.2.[id number] [facility] 2023-06-27 00:00:00 2023-07-01 07:52:52 Telephone Virginia Navarro [facility] POSITION CLASSIFICATION SPECIALIST [facility] & CHILD [facility] ..840.114 350.1.13.10 4.2.7.2.[id number] [facility] 2023-06-24 08:00:00 2023-06-24 08:41:41 Outpatient R VIRGINIA NAVARRO [facility] [id number] [facility] 2023-06-24 08:00:00 2023-06-24 08:41:41 Office Visit Virginia Navarro [facility] POSITION CLASSIFICATION SPECIALIST [facility] & CHILD [facility] 1..840.114 350.1.13.10 4.2.7.2.[id number] [facility] 2023-05-06 08:30:00 2023-05-06 08:10:45 Outpatient R VIRGINIA NAVARRO [facility] [id number] [facility] 2023-02-28 15:30:00 2023-02-28 15:35:59 Outpatient R DEYA FARMER [facility] [id number] [facility] 2023-02-28 15:30:00 2023-02-28 15:35:59 Nurse Visit Visit, Deya Galvez [facility] POSITION CLASSIFICATION SPECIALIST [facility] & CHILD [facility] 1..840.114 350.1.13.10 4.2.7.2.[id number] [facility] 2023-02-28 00:00:00 2023-02-28 00:00:00 Orders Only Doctor Unassigned, [place] [facility] 1..840.114 350.1.13.10 4.2.7.2.[id number] [facility] 2022-11-26 08:30:00 2022-11-26 15:10:49 Outpatient R VIRGINIA NAVARRO [facility] [id number] [facility] 2022-11-26 08:30:00 2022-11-26 08:45:00 Nurse Visit Nurse, Ishan Villalobos Rgv Cprit Obgyn Virginia Navarro [facility] POSITION CLASSIFICATION SPECIALIST [facility] & CHILD [facility] 1..840.114 350.1.13.10 4.2.7.2.[id number] [facility] 2022-10-29 10:30:00 2022-10-29 11:18:11 Outpatient R CHELSEY DORADO [facility] [id number] [facility] 2022-10-29 10:30:00 2022-10-29 11:18:11 Office Visit Provider, Chelsey Bruno [facility] POSITION CLASSIFICATION SPECIALIST [facility] & CHILD [facility] 1.840.114 350.1.13.10 4.2.7.2.[id number] [facility] 2022-10-22 08:45:00 2022-10-22 09:05:28 Outpatient R VIRGINIA NAVARRO [facility] [id number] [facility] 2022-10-22 08:15:00 2022-10-22 09:05:17 Outpatient R VIRGINIA NAVARRO [facility] [id number] [facility] 2022-10-22 08:15:00 2022-10-22 09:05:17 Office Visit Virginia Navarro [facility] POSITION CLASSIFICATION SPECIALIST [facility] & CHILD [facility] 1.84.114 350.1.13.10 4.2.7.2.[id number] [facility] 2022-10-22 08:45:00 2022-10-22 09:00:00 Nurse Visit Nurse, Ishan Villalobos Rgv Cprit Obgyn Virginia Navarro [facility] POSITION CLASSIFICATION SPECIALIST [facility] & CHILD [facility] 1.84.114 350.1.13.10 4.2.7.2.[id number] [facility] 2022-09-19 09:00:00 2022-09-19 09:00:00 Outpatient R DEYA FARMER [facility] [id number] [facility] 2022-07-02 00:00:00 2022-07-02 00:00:00 Nurse Triage Kota Monte [facility] 1..114 350.1.13.10 4.2.7.2.[id number] [facility] 2022-06-22 00:00:00 2022-06-22 00:00:00 Telephone Deya Farmer [facility] POSITION CLASSIFICATION SPECIALIST [facility] & CHILD [facility] 1.2.840.114 350.1.13.10 4.2.7.2.[id number] [facility] 2022-06-20 09:00:00 2022-06-20 11:04:39 Outpatient R DEYA FARMER [facility] [id number] [facility] 2022-06-20 09:00:00 2022-06-20 11:04:39 Office Visit Melsade Deya Grullon [facility] POSITION CLASSIFICATION SPECIALIST [facility] & CHILD [facility] 1.2.840.114 350.1.13.10 4.2.7.2.[id number] [facility] 2022-04-23 09:00:00 2022-04-23 09:19:55 Nurse Visit Visit, Virginia Guido [facility] 1..840.114 350.1.13.10 4.2.7.2.[id number] [facility] 2022-04-23 09:00:00 2022-04-23 09:00:00 Outpatient R VIRGINIA NAVARRO [facility] [id number] [facility] 2022-01-15 09:30:00 2022-01-15 09:44:31 Outpatient R VIRGINIA NAVARRO [facility] [id number] [facility] 2022-01-15 09:30:00 2022-01-15 09:44:31 Nurse Visit Visit, Virginia Guido [facility] 1.2.840.114 350.1.13.10 4.2.7.2.[id number] [facility] 2022-01-15 09:30:00 2022-01-15 09:30:00 Outpatient R [facility] [id number] [facility] 2021-12-22 08:30:00 2021-12-22 08:30:00 Nurse Visit Visit, Ang-Rmchp Nurse Virginia Navarro [facility] POSITION CLASSIFICATION SPECIALIST [facility] MATERNAL & CHILD [facility] 1.2840.114 350.1.13.10 4.2.7.2.[id number] [facility] 2021-12-22 08:30:00 2021-12-22 08:22:59 Outpatient R VIRGINIA NAVARRO [facility] [id number] [facility] 2021-11-27 13:00:00 2021-11-27 14:10:39 Outpatient R VIRGINIA NAVARRO [facility] [id number] [facility] 2021-11-27 13:00:00 2021-11-27 14:10:39 Office Visit Virginia Navarro [facility] POSITION CLASSIFICATION SPECIALIST [facility] & CHILD [facility] 1.2840.114 350.1.13.10 4.2.7.2.[id number] [facility] 2021-11-27 00:00:00 2021-11-27 00:00:00 Orders Only Doctor Unassigned, [place] [facility] 1.2840.114 350.1.13.10 4.2.7.2.[id number] [facility] 2021-11-21 00:00:00 2021-11-21 00:00:00 Telephone Virginia Navarro [facility] POSITION CLASSIFICATION SPECIALIST [facility] CHILD [facility] 1.2840.114 350.1.13.10 4.2.7.2.[id number] [facility] 2021-06-20 09:15:00 2021-06-20 10:16:43 Outpatient R VIRGINIA NAVARRO [facility] [id number] [facility] 2021-06-20 09:15:00 2021-06-20 10:16:43 Office Visit Virginia Navarro [facility] POSITION CLASSIFICATION SPECIALIST [facility] & CHILD [facility] 1.2840.114 350.1.13.10 4.2.7.2.[id number] [facility] 2021-06-20 09:15:00 2021-06-20 10:16:43 Outpatient R VIRGINIA NAVARRO [facility] [id number] [facility] 2021-06-19 09:45:00 2021-06-19 09:45:00 Outpatient R AARON NJ [facility] [id number] [facility] 2021-05-19 00:00:00 2021-05-19 00:00:00 Telephone Jeff Copeland [facility] POSITION CLASSIFICATION SPECIALIST [facility] & CHILD [facility] 1.840.114 350.1.13.10 4.2.7.2.[id number] [facility] 2020-11-18 10:17:17 2020-11-18 10:53:24 Nurse Visit Visit, Ang-Rmchp Nurse Virginia Navarro [facility] POSITION CLASSIFICATION SPECIALIST [facility] & CHILD [facility] 1..840.114 350.1.13.10 4.2.7.2.[id number] [facility] 2020-11-18 10:00:00 2020-11-18 10:00:00 Outpatient R JEFF COPELAND [facility] [id number] [facility] 2020-11-18 00:00:00 2020-11-18 00:00:00 Orders Only Doctor Unassigned, [place] [facility] 1.2840.114 350.1.13.10 4.2.7.2.[id number] [facility] 2020-11-16 09:00:00 2020-11-16 09:00:00 Outpatient R [facility] [id number] [facility] 2020-10-25 10:15:00 2020-10-25 10:15:00 Outpatient R KRISTYN COPELANDADAMSMitchel [facility] [id number] [facility] 2020-06-16 08:56:59 2020-06-16 09:48:52 Office Visit Stevan Jeff Melendez [facility] POSITION CLASSIFICATION SPECIALIST [facility] & CHILD [facility] 1.840.114 350.1.13.10 4.2.7.2.[id number] [facility] 2020-06-16 09:00:00 2020-06-16 09:00:00 Outpatient R KRISTYN COPELANDLEDY [facility] [id number] [facility] 2020-06-09 00:00:00 2020-06-09 00:00:00 Telephone Copeland, Jeff Melendez [facility] POSITION CLASSIFICATION SPECIALIST [facility] CHILD [facility] 1.840.114 350.1.13.10 4.2.7.2.[id number] [facility] 2020-01-18 09:23:45 2020-01-18 09:51:43 Nurse Visit Visit, [facility]-Rmchp Nurse Hank Copelandrosalind Melendez [facility] POSITION CLASSIFICATION SPECIALIST [facility] CHILD [facility] 1.840.114 350.1.13.10 4.2.7.2.[id number] [facility] 2020-01-18 09:30:00 2020-01-18 09:30:00 Outpatient R [facility] [id number] [facility] 2020-01-04 00:00:00 2020-01-04 00:00:00 Refill Virginia Navarro [facility] POSITION CLASSIFICATION SPECIALIST [facility] & CHILD [facility] 1..840.114 350.1.13.10 4.2.7.2.[id number] [facility] 2019-11-02 00:00:00 2019-11-02 00:00:00 Telephone JeronimoVirginia perez [facility] POSITION CLASSIFICATION SPECIALIST [facility] & CHILD [facility] 1.2.840.114 350.1.13.10 4.2.7.2.[id number] [facility] 2019-11-02 00:00:00 2019-11-02 00:00:00 Telephone Virginia Navarro [facility] POSITION CLASSIFICATION SPECIALIST [facility] & CHILD [facility] 1.2.840.114 350.1.13.10 4.2.7.2.[id number] [facility] 2019-10-26 09:52:00 2019-10-26 13:20:31 Office Visit Virginia Navarro [facility] POSITION CLASSIFICATION SPECIALIST [facility] CHILD [facility] 1.2840.114 350.1.13.10 4.2.7.2.[id number] [facility] 2019-10-26 10:00:00 2019-10-26 10:00:00 Outpatient R VIRGINIA NAVARRO [facility] [id number] [facility] 2019-10-26 00:00:00 2019-10-26 00:00:00 Orders Only Doctor Unassigned, [place] [facility] 1.840.114 350.1.13.10 4.2.7.2.[id number] [facility] 2019-10-22 09:30:00 2019-10-22 09:30:00 Outpatient R AARON [place] [facility] [id number] [facility] 2019-06-18 09:23:48 2019-06-18 10:18:42 Office Visit Jeff Copeland [facility] POSITION CLASSIFICATION SPECIALIST [facility] & CHILD [facility] 1.2.840.114 350.1.13.10 4.2.7.2.[id number] [facility] 2019-06-18 09:30:00 2019-06-18 09:30:00 Outpatient R JEFF COPELAND [facility] [id number] [facility] 2019-04-15 09:28:06 2019-04-15 10:07:29 Nurse Visit Visit, [facility] Nurse Kristyn Copelandledy Melendez [facility] POSITION CLASSIFICATION SPECIALIST [facility] MATERNAL & CHILD [facility] 1.2840.114 350.1.13.10 4.2.7.2.[id number] [facility] 2019-04-15 09:30:00 2019-04-15 09:30:00 Outpatient JEFF DARLING [facility] [id number] [facility] 2018-10-29 00:00:00 2018-10-29 00:00:00 Telephone J Luis Akers [facility] 1.0.114 350.1.13.10 4.2.7.2.[id number] [facility] 2018-10-21 08:53:17 2018-10-21 11:07:31 Office Visit Res-Colpo/L eep, [facility] Marcela [facility] 1..114 350.1.13.10 4.2.7.2.[id number] [facility] 2018-10-14 13:52:52 2018-10-14 14:11:08 Office Visit Hank Copelandrosalind [facility] POSITION CLASSIFICATION SPECIALIST [facility] & CHILD [facility] 1.2840.114 350.1.13.10 4.2.7.2.[id number] [facility] 2018-10-14 00:00:00 2018-10-14 00:00:00 Orders Only Doctor Unassigned, [place] [facility] 1.2840.114 350.1.13.10 4.2.7.2.[id number] [facility] 2018-09-24 00:00:00 2018-09-24 00:00:00 Telephone Jeff Copeland [facility] POSITION CLASSIFICATION SPECIALIST [facility] & CHILD [facility] 1.2.840.114 350.1.13.10 4.2.7.2.[id number] [facility] 2018-09-16 08:41:44 2018-09-16 09:06:23 Nurse Visit Visit, [facility] Nurse Jeff Copeland [facility] POSITION CLASSIFICATION SPECIALIST [facility] & CHILD [facility] 1.2.840.114 350.1.13.10 4.2.7.2.[id number] [facility] 2018-09-16 00:00:00 2018-09-16 00:00:00 Orders Only Doctor Unassigned, [place] [facility] 1.2.840.114 350.1.13.10 4.2.7.2.[id number] [facility] Results Test Description Test Time Test Comments Results Resul t Comments Source BI ULTRASOUND BREAST COMPLETE LEFT 2023-09-12 15:18:24 Examination:BI DIAGNOSTIC TOMOSYNTHESIS BILATERALBI ULTRASOUND BREAST COMPLETE LEFT History:Patient is 38 year old and is seen for: Focal left breast pain. Comparisons : None available. Findings:The breasts are heterogeneously dense, which may obscure small masses. BI DIAGNOSTIC TOMOSYNTHESIS BILATERALThere is no evidence of suspicious masses, calcifications, or other abnormal findings in either breast. ?Specifically, there is no mammographic abnormality at the reported area of concern in the left breast. BI ULTRASOUND BREAST COMPLETE LEFTSurvey ultrasound of the left breast and axilla was performed. No suspicious mass is seen. Specifically, there is no sonographic abnormality at the reported area of concern at 2 o'clock, 5 cm from the nipple. There is a normal-appearing axillary level I lymph node. Impression: No imaging evidence of left breast malignancy. ?No imaging finding to explain the patient's reported left breast symptoms. No right mammographic evidence of malignancy. Recommendation:Clin ical follow-up is also recommended and further management of clinical findings should be based on the results of clinical evaluation. - LeftFollow-up at age 39 or based on current ACR guidelines - Bilateral ? Imaging findings and recommendation were discussed with the patient via design coordinator ID # [id number] by Dr Juarez. ?Informative breast pain sheet was provided. BI-RADS Category: Both 1 - Negative I, James Mcconnell MD ?personally reviewed the study and agree with the resident's/fellow's report. [facility] BI DIAGNOSTIC TOMOSYNTHESIS BILATERAL 2023-09-12 15:18:24 Examination:BI DIAGNOSTIC TOMOSYNTHESIS BILATERALBI ULTRASOUND BREAST COMPLETE LEFT History:Patient is 38 year old and is seen for: Focal left breast pain. Comparisons : None available. Findings:The breasts are heterogeneously dense, which may obscure small masses. BI DIAGNOSTIC TOMOSYNTHESIS BILATERALThere is no evidence of suspicious masses, calcifications, or other abnormal findings in either breast. ?Specifically, there is no mammographic abnormality at the reported area of concern in the left breast. BI ULTRASOUND BREAST COMPLETE LEFTSurvey ultrasound of the left breast and axilla was performed. No suspicious mass is seen. Specifically, there is no sonographic abnormality at the reported area of concern at 2 o'clock, 5 cm from the nipple. There is a normal-appearing axillary level I lymph node. Impression: No imaging evidence of left breast malignancy. ?No imaging finding to explain the patient's reported left breast symptoms. No right mammographic evidence of malignancy. Recommendation:Clin ical follow-up is also recommended and further management of clinical findings should be based on the results of clinical evaluation. - LeftFollow-up at age 39 or based on current ACR guidelines - Bilateral ? Imaging findings and recommendation were discussed with the patient via design coordinator ID # [id number] by Dr Juarez. ?Informative breast pain sheet was provided. BI-RADS Category: Both 1 - Negative I, James Mcconnell MD ?personally reviewed the study and agree with the resident's/fellow's report. [facility] BranchPOCT [id number] 17:51:00* Test Item Value Reference Range Interpretation Comme nts POCT PREG (test code = 1605) Negative On board controls acceptable with C Line (test code = 3574) Yes POCT PREG LOT # (test code = 3575) POCT PREG TEST DATE ( test code = 3576) [facility] URINALYSIS W/O SPECIFIC [id number] 15:23:00* Test Item Value Reference Range Interpretation Comme nts POCT PH U (test code = 3254) 5 mg/dl 5-8 POCT U LEUK EST (test code = 3263) Trace Negative - Negative POCT U NIT (test code = 3262) Neg Negative - Negati ve POCT U PROT (test code = 3259) 1+ Negative - Negat carlos POCT U GLU (test code = 3256) Neg Negative - Negati ve POCT U KETONE (test code = 3258) None Negative - Neg ative POCT U BLD (test code = 3257) Large Negative - Negati ve [facility] URINALYSIS W/O SPECIFIC [id number] 15:23:00* Test Item Value Reference Range Interpretation Comme nts POCT PH U (test code = 3254) 5 mg/dl 5-8 POCT U LEUK EST (test code = 3263) Trace Negative - Negative POCT U NIT (test code = 3262) Neg Negative - Negati ve POCT U PROT (test code = 3259) 1+ Negative - Negat carlos POCT U GLU (test code = 3256) Neg Negative - Negati ve POCT U KETONE (test code = 3258) None Negative - Neg ative POCT U BLD (test code = 3257) Large Negative - Negati ve [facility] [id number] 13:34:00* Test Item Value Reference Range Interpretation Comme nts POCT PREG (test code = 1605) Negative On board controls acceptable with C Line (test code = 3574) Yes POCT PREG LOT # (test code = 3575) POCT PREG TEST DATE ( test code = 3576) [facility] [id number] 13:34:00* Test Item Value Reference Range Interpretation Comme nts POCT PREG (test code = 1605) Negative On board controls acceptable with C Line (test code = 3574) Yes POCT PREG LOT # (test code = 3575) POCT PREG TEST DATE ( test code = 3576) [facility] [id number] 13:34:00* Test Item Value Reference Range Interpretation Comme nts POCT PREG (test code = 1605) Negative On board controls acceptable with C Line (test code = 3574) Yes POCT PREG LOT # (test code = 3575) POCT PREG TEST DATE ( test code = 3576) [facility] TylerGLYCOSYL[facility] HEM[facility]GLOBIN (A1C)2022-06-21 06:19:58* Test Item Value Reference Range Interpretation Comme nts HGB A1C (test code = 4548-4) 4.9 % 4.0-5.7 RAY (test code = RAY) Reference RangesNormal: <5.7%Prediabetes: 5.7 - 6.4%Diabetes: > 6.5% Lab Interpretation (test code = 76747-5) Normal [facility]A1C)2022-06-21 06:19:58* Test Item Value Reference Range Interpretation Comme nts HGB A1C (test code = 4548-4) 4.9 % 4.0-5.7 RAY (test code = RAY) Reference RangesNormal: <5.7%Prediabetes: 5.7 - 6.4%Diabetes: > 6.5% Lab Interpretation (test code = 17133-6) Normal [facility]GL[facility]A1C)2022-06-21 06:19:58* Test Item Value Reference Range Interpretation Comme nts HGB A1C (test code = 4548-4) 4.9 % 4.0-5.7 RAY (test code = RAY) Reference RangesNormal: <5.7%Prediabetes: 5.7 - 6.4%Diabetes: > 6.5% Lab Interpretation (test code = 33069-6) [facility] Tyler[facility] ST[facility] [id number] 05:37:02 * Test Item Value Reference Range Interpretation Comme nts TSH (test code = 0903510283) 2.99 See_Comment [Automated messa ge] The system which generated this result transmitted reference range: 0.45 - 4.70 mIU/L. The reference range was not used to interpret this result as normal/abnormal. Lab Interpretation (test code = 75332-8) Normal [facility] [id number] 05:37:02 * Test Item Value Reference Range Interpretation Comme nts TSH (test code = 6862807606) 2.99 See_Comment [Automated messa ge] The system which generated this result transmitted reference range: 0.45 - 4.70 mIU/L. The reference range was not used to interpret this result as normal/abnormal. Lab Interpretation (test code = 98312-5) Normal [facility] [id number] 05:37:02 * Test Item Value Reference Range Interpretation Comme nts TSH (test code = 1804745702) 2.99 See_Comment [Automated messa ge] The system which generated this result transmitted reference range: 0.45 - 4.70 mIU/L. The reference range was not used to interpret this result as normal/abnormal. Lab Interpretation (test code = 26614-8) Normal [facility] WITH [id number] 05:16:38* Test Item Value Reference Range Interpretation Comme nts WBC (test code = 6690-2) 6.90 See_Comment [Automated messa ge] The system which generated this result transmitted reference range: 4.30 - 11.10 10*3/?L. The reference range was not used to interpret this result as normal/abnormal. RBC (test code = 789-8) 4.63 See_Comment [Automated messa ge] The system which generated this result transmitted reference range: 3.93 - 5.25 10*6/?L. The reference range was not used to interpret this result as normal/abnormal. HGB (test code = 718-7) 13.4 g/dL 11.6-15.0 HCT (test code = 4544-3) 40.6 % 35.7-45.2 MCV (test code = 787-2) 87.7 fL 80.6-95.5 MCH (test code = 785-6) 28.9 pg 25.9-32.8 MCHC (test code = 786-4) 33.0 g/dL 31.6-35.1 RDW-SD (test code = 16328-3) 41.1 fL 39.0-49.9 RDW-CV (test code = 788-0) 12.9 % 12.0-15.5 PLT (test code = 777-3) 268 See_Comment [Automated messa ge] The system which generated this result transmitted reference range: 166 - 358 10*3/?L. The reference range was not used to interpret this result as normal/abnormal. MPV (test code = 83834-7) 10.6 fL 9.5-12.9 NRBC/100 WBC (test code = 0594913247) 0.0 See_Comment [Automated me ssage] The system which generated this result transmitted reference range: 0.0 - 10.0 /100 WBCs. The reference range was not used to interpret this result as normal/abnormal. NRBC x10^3 (test code = 4901201115) See_Comment [Automated me ssage] The system which generated this result transmitted reference range: 10*3/?L. The reference range was not used to interpret this result as normal/abnormal. GRAN MAT (NEUT) % (test code = 770-8) 62.6 % IMM GRAN % (test code = 7728916752) 0.10 % LYMPH % (test code = 736-9) 24.1 % MONO % (test code = 5905-5) 9.4 % EOS % (test code = 713-8) 2.9 % BASO % (test code = 706-2) 0.9 % GRAN MAT x10^3(ANC) (test code = 7922266183) 4.32 10*3/uL 1.88-7.09 IMM GRAN x10^3 (test code = 8958479873) 0.00-0.06 LYMPH x10^3 (test code = 731-0) 1.66 10*3/uL 1.32-3.29 MONO x10^3 (test code = 742-7) 0.65 10*3/uL 0.33-0.92 EOS x10^3 (test code = 711-2) 0.20 10*3/uL 0.03-0.39 BASO x10^3 (test code = 704-7) 0.06 10*3/uL 0.01-0.07 [facility] WITH [id number] 05:16:38* Test Item Value Reference Range Interpretation Comme nts WBC (test code = 6690-2) 6.90 See_Comment [Automated messa ge] The system which generated this result transmitted reference range: 4.30 - 11.10 10*3/?L. The reference range was not used to interpret this result as normal/abnormal. RBC (test code = 789-8) 4.63 See_Comment [Automated messa ge] The system which generated this result transmitted reference range: 3.93 - 5.25 10*6/?L. The reference range was not used to interpret this result as normal/abnormal. HGB (test code = 718-7) 13.4 g/dL 11.6-15.0 HCT (test code = 4544-3) 40.6 % 35.7-45.2 MCV (test code = 787-2) 87.7 fL 80.6-95.5 MCH (test code = 785-6) 28.9 pg 25.9-32.8 MCHC (test code = 786-4) 33.0 g/dL 31.6-35.1 RDW-SD (test code = 10593-5) 41.1 fL 39.0-49.9 RDW-CV (test code = 788-0) 12.9 % 12.0-15.5 PLT (test code = 777-3) 268 See_Comment [Automated NewsPina ge] The system which generated this result transmitted reference range: 166 - 358 10*3/?L. The reference range was not used to interpret this result as normal/abnormal. MPV (test code = 52749-5) 10.6 fL 9.5-12.9 NRBC/100 WBC (test code = 4797237614) 0.0 See_Comment [Automated me ssage] The system which generated this result transmitted reference range: 0.0 - 10.0 /100 WBCs. The reference range was not used to interpret this result as normal/abnormal. NRBC x10^3 (test code = 0946810240) See_Comment [Automated me ssage] The system which generated this result transmitted reference range: 10*3/?L. The reference range was not used to interpret this result as normal/abnormal. GRAN MAT (NEUT) % (test code = 770-8) 62.6 % IMM GRAN % (test code = 5630107551) 0.10 % LYMPH % (test code = 736-9) 24.1 % MONO % (test code = 5905-5) 9.4 % EOS % (test code = 713-8) 2.9 % BASO % (test code = 706-2) 0.9 % GRAN MAT x10^3(ANC) (test code = 2165647623) 4.32 10*3/uL 1.88-7.09 IMM GRAN x10^3 (test code = 8401408684) 0.00-0.06 LYMPH x10^3 (test code = 731-0) 1.66 10*3/uL 1.32-3.29 MONO x10^3 (test code = 742-7) 0.65 10*3/uL 0.33-0.92 EOS x10^3 (test code = 711-2) 0.20 10*3/uL 0.03-0.39 BASO x10^3 (test code = 704-7) 0.06 10*3/uL 0.01-0.07 [facility] WITH [id number] 05:16:38* Test Item Value Reference Range Interpretation Comme nts WBC (test code = 6690-2) 6.90 See_Comment [Automated NewsPina ge] The system which generated this result transmitted reference range: 4.30 - 11.10 10*3/?L. The reference range was not used to interpret this result as normal/abnormal. RBC (test code = 789-8) 4.63 See_Comment [Automated [employer] ge] The system which generated this result transmitted reference range: 3.93 - 5.25 10*6/?L. The reference range was not used to interpret this result as normal/abnormal. HGB (test code = 718-7) 13.4 g/dL 11.6-15.0 HCT (test code = 4544-3) 40.6 % 35.7-45.2 MCV (test code = 787-2) 87.7 fL 80.6-95.5 MCH (test code = 785-6) 28.9 pg 25.9-32.8 MCHC (test code = 786-4) 33.0 g/dL 31.6-35.1 RDW-SD (test code = 13710-6) 41.1 fL 39.0-49.9 RDW-CV (test code = 788-0) 12.9 % 12.0-15.5 PLT (test code = 777-3) 268 See_Comment [Automated messa ge] The system which generated this result transmitted reference range: 166 - 358 10*3/?L. The reference range was not used to interpret this result as normal/abnormal. MPV (test code = 90472-5) 10.6 fL 9.5-12.9 NRBC/100 WBC (test code = 7418639386) 0.0 See_Comment [Automated me ssage] The system which generated this result transmitted reference range: 0.0 - 10.0 /100 WBCs. The reference range was not used to interpret this result as normal/abnormal. NRBC x10^3 (test code = 7081707981) See_Comment [Automated me ssage] The system which generated this result transmitted reference range: 10*3/?L. The reference range was not used to interpret this result as normal/abnormal. GRAN MAT (NEUT) % (test code = 770-8) 62.6 % IMM GRAN % (test code = 3920485954) 0.10 % LYMPH % (test code = 736-9) 24.1 % MONO % (test code = 5905-5) 9.4 % EOS % (test code = 713-8) 2.9 % BASO % (test code = 706-2) 0.9 % GRAN MAT x10^3(ANC) (test code = 8029592635) 4.32 10*3/uL 1.88-7.09 IMM GRAN x10^3 (test code = 6136922174) 0.00-0.06 LYMPH x10^3 (test code = 731-0) 1.66 10*3/uL 1.32-3.29 MONO x10^3 (test code = 742-7) 0.65 10*3/uL 0.33-0.92 EOS x10^3 (test code = 711-2) 0.20 10*3/uL 0.03-0.39 BASO x10^3 (test code = 704-7) 0.06 10*3/uL 0.01-0.07 [facility] ([facility]307)(TOTAL CHOLESTEROL, TRIGLYCERIDES, HDL)2022-06-21 05:02:53* Test Item Value Reference Range Interpretation Comme nts CHOL (test code = 0797662557) 196 mg/dL 120-200 HDL (test code = 8161634860) 22 mg/dL >=50 L HDLC RATIO (test code = 6968385105) 8.9 <=4.5 H TRIG (test code = 2278371574) 320 mg/dL 30-170 H LDL CHOL (test code = 49949-8) 110 mg/dL <=160 VLDL (test code = 6366803636) 64 mg/dL 5-60 H Lab Interpretation (test cod e = 89780-4) Abnormal [facility] (70859)(TOTAL CHOLESTEROL, TRIGLYCERIDES, HDL)2022-06-21 05:02:53* Test Item Value Reference Range Interpretation Comme nts CHOL (test code = 3510320431) 196 mg/dL 120-200 HDL (test code = 5851309929) 22 mg/dL >=50 L HDLC RATIO (test code = 8296780448) 8.9 <=4.5 H TRIG (test code = 4163369999) 320 mg/dL 30-170 H LDL CHOL (test code = 90326-4) 110 mg/dL <=160 VLDL (test code = 5332497866) 64 mg/dL 5-60 H Lab Interpretation (test cod e = 86220-8) [facility]normal [facility] (58706)(TOTAL CHOLESTEROL, TRIGLYCERIDES, HDL)2022-06-21 05:02:53* Test Item Value Reference Range Interpretation Comme nts CHOL (test code = 0072633418) 196 mg/dL 120-200 HDL (test code = 2411467984) 22 mg/dL >=50 L HDLC RATIO (test code = 3299446104) 8.9 <=4.5 H TRIG (test code = 9211853126) 320 mg/dL 30-170 H LDL CHOL (test code = 32574-3) 110 mg/dL <=160 VLDL (test code = 3133216701) 64 mg/dL 5-60 H Lab Interpretation (test cod e = 95905-8) Abnormal [facility] ONLY - SYPHILIS [id number] 14:46:49* Test Item Value Reference Range Interpretation Comme nts Syphilis IgG/IgM (test code = 68658-4) Non-reactive Non-reactive RAY (test code = RAY) Non-reactive - No serologic evidence of T. pallidum infection. Cannot exclude incubating or early syphilis. Submit a second specimen in 2-4 weeks if syphilis is clinically suspected. Equivocal - Further testing to follow. Reactive - Further testing to follow. Lab Interpretation (test code = 22753-7) Normal [facility] ONLY - SYPHILIS [id number] 14:46:49* Test Item Value Reference Range Interpretation Comme nts Syphilis IgG/IgM (test code = 54533-0) Non-reactive Non-reactive RAY (test code = RAY) Non-reactive - No serologic evidence of T. pallidum infection. Cannot exclude incubating or early syphilis. Submit a second specimen in 2-4 weeks if syphilis is clinically suspected. Equivocal - Further testing to follow. Reactive - Further testing to follow. Lab Interpretation (test code = 73988-6) Normal [facility] 1/2 AG-AB WITH [id number] 06:15:40* Test Item Value Reference Range Interpretation Comme nts HIV Semi-quantitative (test code = 39971-7) Negative Negative RAY (test code = RAY) Non-reactive for HIV-1 antigen and HIV-1/HIV-2 antibodies. ?No laboratory evidence of HIV infection. ?Repeat in 2-4 weeks if acute HIV infection is suspected. [facility] 1/2 AG-AB WITH [id number] 06:15:40* Test Item Value Reference Range Interpretation Comme [facility] HIV Semi-quantitative (test code = 03154-1) Negative Negative RAY (test code = RAY) Non-reactive for HIV-1 antigen and HIV-1/HIV-2 antibodies. ?No laboratory evidence of HIV infection. ?Repeat in 2-4 weeks if acute HIV infection is suspected. [facility] Notes Date/Time Note Provider Source 2023-09-04 16:03:51 Called pt, notified of diagnostic appointment. Verbalized understanding Tara Scales RN 09/04/23 4:04 PM Tara Scales RN [facility] 2023-09-03 15:11:20 Orders placed DEBORAH Young 09/03/2023 3:11 PM [facility] 2023-08-29 09:16:26 Per [facility] coordinator. Any diagnostic patient over 30yo needs Mammogram + Ultrasound. Routed to provider for order. Tara Scales RN 08/29/23 9:17 AM Tara Scales RN [facility] 2023-07-02 16:45:50 Pt called back with data report analyst, asking for lab results. Advised normal and negative. Pt verbalized understanding. Tara Scales RN 07/02/23 4:46 PM Tara Scales RN [facility] 2023-07-02 16:35:23 Called pt, no answer. Left vm. Tara Scales RN 07/02/23 4:35 PM [facility] 2023-07-02 12:22:26 Chelsey Dos Santos is a 37 year old female PT is calling to speak with a nurse about results. Erlin Duenas [facility] 2023-06-28 14:42:00 Returned phone call, pt currently driving. Will return phone call. Tara Scales RN 06/28/23 2:42 PM Tara Scales RN [facility] 2023-06-28 14:38:08 Copied from [facility] #[id number]. Topic: Clinical - Medical Advice >> June 28, 2023 2:36 PM Patient District Or District Office Director wrote: Pt is returning call, states you have to call on [phone]. Please call that number for sign language. CLEMENTE Brady [facility] 2023-06-28 14:31:45 2nd attempt, no answer. Left vm. Tara Scales RN 06/28/23 2:32 PM [facility] 2023-06-27 13:37:31 Called pt, no answer. Left vm. Tara Scales RN 06/27/23 1:37 PM [facility] 2023-06-27 12:46:30 Chelsey Dos Santos is a 37 year old female Pt is calling through Corporate Giving Manager - [phone] with [employer] wanting to know test results. Pt also have questions about norethindrine estradiolirin. Please call back with a Corporate Giving Manager. Shakira Mattson [facility]
--- NOTE | 2023-12-17 17:37 | RAD REPORT ---
EXAMINATION: XR LEFT TIBIA AND FIBULA CLINICAL INDICATION: . PAIN TECHNIQUE:Two view radiograph of the left tibia and fibula were obtained. COMPARISON: No prior exam. FINDINGS: There is a trimalleolar left ankle fracture. Tibiotalar subluxation is present without comp lete dislocation. Subtalar joints are congruent. Left knee is grossly unremarkable.
[2023-12-17] MEDS ORDERED: MORPHINE 4 MG/ML SYR ONE (18:29)
[2023-12-17] MEDS ORDERED: ETOMIDATE 20 MG/10 ML VIAL IV ONE (18:45)
[2023-12-17] MEDS ORDERED: ONDANSETRON 4 MG/2 ML VIAL ONE (18:50)
--- NOTE | 2023-12-17 19:24 | RAD REPORT ---
EXAMINATION: XR LEFT ANKLE CLINICAL INDICATION: Female, 38 years old. post reduction TECHNIQUE: 2 view radiograph of the left ankle were obtained. COMPARISON: 12/17/2023 FINDINGS: Previously noted fracture has been reduced within a plaster splint. Fracture has been sign ificantly reduced. Bone detail is limited.
--- NOTE | 2023-12-17 19:58 | EDPHYS ---
Physician Documentation [facility] Name: Chelsey Dos Santos Age: 38 yrs Sex: Female : 1985 Arrival Date: 12/17/2023 Time: 16:25 Bed 17 Private MD: ED Physician Trung Acosta HPI: 12/16 19:19 This 38 yrs old Female presents to ER via Wheelchair with complaints of Ankle kb Injury - Left. 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 Denies any other injuries. 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 . 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 - Infectious Disease History:: Denies. - Social history:: Smoking status: Patient denies any tobacco usage or history of. Patient/guardian denies using alcohol. ROS: 19:17 Constitutional: As per HPI kb Exam: 19:17 Constitutional: This is a well developed, well nourished patient who is awake, alert, kb and in no acute distress. Head/Face: Normocephalic, atraumatic. ENT: Moist Mucous membranes Cardiovascular: Regular rate Respiratory: Respirations even and unlabored. No increased work of breathing. Talking in full sentences Skin: Warm, dry with normal turgor. Normal color. Neuro: Awake and alert, GCS 15, oriented to person, place, time, and situation. 19:17 Musculoskeletal/extremity: Extremities: grossly normal except: noted in the left ankle: decreased ROM, deformity, pain, swelling, tenderness, ROM: limited active range of motion, Circulation is intact in all extremities. Sensation intact. Weight bearing: is unable to bear weight, Vital Signs: 16:42 BP 142 / 94; Pulse 87; Resp 22; Temp 98.1(O); Pulse Ox 97% on R/A; MAP 108 mmHg; Pain tm6 10/10; 16:50 BP 149 / 88; Pulse 84; Resp 17; Pulse Ox 99% on R/A; rs5 17:00 BP 157 / 84; Pulse 79; Resp 17; Pulse Ox 98% on R/A; rs5 18:07 BP 137 / 87; Pulse 77; Resp 17; Pulse Ox 98% on R/A; rs5 19:15 BP 152 / 88; Pulse 58; Resp 18; Pulse Ox 98% ; kj2 20:34 BP 130 / 79; Pulse 72; Resp 18; Temp 97.9; Pulse Ox 100% ; kj2 16:42 Pain Scale: Adult tm6 Procedures: 19:16 Splinting: Splint applied to left ankle using Orthoglass splint, applied by myself. kb tech. post reduction film - reveals normal alignment, Examined by me, post splint application: neurovascular intact, 2+ distal pulses palpable, brisk capillary refill noted, Patient tolerated well. Reduction: of the left ankle, using traction, manipulation, Immobilized with Orthoglass splint. Patient tolerated well. Post reduction film - reveals normal alignment. Procedural sedation: Monitoring during procedure: resident hall director, continuous pulse oximetry, nurse at bedside at all times, Medications employed: Etomidate, 10 mg(s), Alternatives to procedural sedation discussed. MDM: 16:31 Medical Screening Exam initiated kb 18:46 ED course: Explained risks and benefits of conscious sedation and reduction with pt and kb spouse using the ASL automatic furnace operator line. Both in agreement with sedation and procedure. Educated both on need for follow up with Dr Garrido. Verbal understanding received. . 19:19 Differential diagnosis: fracture, sprain. Data reviewed: vital signs, nurses notes. kb Management of patient was discussed with the following: Hand Thermal Cutter: Dr Garrido recommends reduction, splint and follow up in office. Historians other than the Patient: Spouse/Significant Other: . Counseling: I had a detailed discussion with the patient and/or guardian regarding the historical points, exam findings, and any diagnostic results supporting the discharge/admit diagnosis, radiology results, the need for outpatient follow up, a orthopedic surgeon, to return to the emergency department if symptoms worsen or persist or if there are any questions or concerns that arise at home. 12/16 16:39 Order name: Tib Fib Left XRAY; Complete Time: 17:38 kb 12/16 19:02 Order name: Ankle Left 2 View XRAY; Complete Time: 19:29 sp3 12/16 16:39 Order name: IV Start; Complete Time: 17:24 kb 12/16 18:16 Order name: Conscious Sedation; Complete Time: 19:12 kb 12/16 20:30 Order name: Crutches; Complete Time: 20:30 sp4 Administered Medications: 16:40 Drug: morphine IVP or IV 4 mg IVP once over 4 mins Route: IVP; Infused Over: 4 mins; rs5 Site: left antecubital; 17:01 Follow up: Response: No adverse reaction; Pain is decreased rs5 16:40 Drug: Ondansetron IVP 4 mg IVP once; over 2 minutes Route: IVP; Site: left antecubital; rs5 20:20 Follow up: Response: No adverse reaction kj2 18:45 Drug: morphine IVP or IV 4 mg IVP once over 4 mins Route: IVP; Infused Over: 4 mins; rs5 Site: right antecubital; 19:05 Follow up: Response: No adverse reaction; Pain is decreased rs5 18:55 Drug: Etomidate IVP 10 mg IVP once Route: IVP; Site: right antecubital; rs5 19:10 Follow up: Response: No adverse reaction rs5 Disposition Summary: 12/17/23 19:57 Discharge Ordered Notes: Location: Home kb Problem: new kb Symptoms: are unchanged kb Condition: Stable kb Diagnosis - Displaced trimalleolar fracture of left lower leg, initial encounter for closed kb fracture Followup: kb - With: Emergency Department - When: As needed - Reason: Worsening of condition Followup: kb - With: Pradeep Garrido MD - When: 1 - 2 days - Reason: Recheck today's complaints Discharge Instructions: - Discharge Summary Sheet kb - Ankle Fracture kb - Displaced Trimalleolar Ankle Fracture Treated With ORIF kb Forms: - Medication Reconciliation Form kb - Antibiotic Education kb - Prescription Opioid Use kb - Patient Portal Instructions kb - Leadership Thank You Letter kb - Work release form kj2 Prescriptions: - acetaminophen-codeine 300-30 mg Oral tablet - take 1 tablet ORAL route every 6 hours As needed; 12 tablet; Refills: 0, kb Product Selection Permitted - Ibuprofen 600 mg Oral Tablet - take 1 tablet ORAL route every 6 hours As needed take with food; 30 tablet; kb Refills: 0, Product Selection Permitted Signatures: Dispatcher [employer] Marcela Moreno FNP-C FNP-Lb Infante, RN RN rs5 Lorenzo Mccullough MD MD sp4 Jamal Butcher RN RN tm6 Tamra Rush RN kj2 Corrections: (The following items were deleted from the chart) 16:40 16:40 Tib Fib Left+RAD.RAD.[email or web address] ordered. EDMS EDMS
--- NOTE | 2023-12-17 19:58 | ER ---
Nurse's Notes [facility] Name: Chelsey Dos Santos Age: 38 yrs Sex: Female : 1985 Arrival Date: 12/17/2023 Time: 16:25 Bed 17 Private MD: Diagnosis: Displaced trimalleolar fracture of left lower leg, initial encounter for closed fracture Presentation: 12/16 16:38 Chief complaint: Patient states: I fell today and I'm in a lot of pain. Left foot in tm6 pain and swollen. 16:40 Coronavirus screen: Vaccine status: Patient reports receiving the 2nd dose of the covid tm6 vaccine. Ebola Screen: Patient negative for fever greater than or equal to 101.5 degrees Fahrenheit, and additional compatible Ebola Virus Disease symptoms Patient denies exposure to infectious person. Patient denies travel to an Ebola-affected area in the 21 days before illness onset. No symptoms or risks identified at this time. Risk Assessment: Do you want to hurt yourself or someone else? Patient reports no desire to harm self or others. Onset of symptoms was December 17, 2023. 16:40 Method Of Arrival: Wheelchair tm6 16:40 Acuity: LANCE 4 tm6 16:40 Initial Sepsis Screen: Does the patient meet any 2 criteria? No. Patient's initial rs5 sepsis screen is negative. Does the patient have a suspected source of infection? No. Patient's initial sepsis screen is negative. Triage Assessment: 16:43 General: Appears distressed, Behavior is cooperative. Pain: Complains of pain in left tm6 lateral ankle, left Achilles, left medial ankle and anterior aspect of left ankle Pain currently is 10 out of 10 on a pain scale. EENT: No signs and/or symptoms were reported regarding the EENT system. Neuro: Level of Consciousness is awake, alert, obeys commands, Oriented to person, place, time, situation. Cardiovascular: Patient's skin is warm and dry. Respiratory: Airway is patent Respiratory effort is even, unlabored, Respiratory pattern is regular, symmetrical. GI: Abdomen is flat, non-distended. : No signs and/or symptoms were reported regarding the genitourinary system. Derm: No signs and/or symptoms reported regarding the dermatologic system. Musculoskeletal: Reports pain in left lateral ankle, left Achilles, left medial ankle and anterior aspect of left ankle Pain is 10 out of 10 on a pain scale. 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 - Infectious Disease History:: Denies. - Social history:: Smoking status: Patient denies any tobacco usage or history of. Patient/guardian denies using alcohol. Screenin:45 [facility] ED Fall Risk Assessment (Adult) History of falling in the last 3 months, rs5 including since admission Yes- single mechanical fall (1 pt) Confusion or Disorientation No (0 pts) Intoxicated or Sedated No (0 pts) Impaired Gait Yes (1 pt) Mobility Assist Device Used Yes (1 pt) Altered Elimination No (0 pt) Score/Fall Risk Level 3 or more points = High Risk Oriented to surroundings, Maintained a safe environment. Abuse screen: Denies threats or abuse. Nutritional screening: No deficits noted. Tuberculosis screening: No symptoms or risk factors identified. Assessment: 16:45 General: Appears in no apparent distress. uncomfortable, Behavior is calm, cooperative. rs5 Pain: Complains of pain in left ankle Pain currently is 8 out of 10 on a pain scale. Quality of pain is described as aching, Is continuous. 16:45 Neuro: Level of Consciousness is awake, alert, obeys commands, Oriented to person, rs5 place, time, situation. Cardiovascular: Patient's skin is warm and dry. Respiratory: Airway is patent Respiratory effort is even, unlabored, Respiratory pattern is regular, symmetrical. GI: Abdomen is round non-distended, Abd is soft and non tender X 4 quads. : No signs and/or symptoms were reported regarding the genitourinary system. EENT: No signs and/or symptoms were reported regarding the EENT system. Derm: Skin is intact, Skin is pink, warm \T\ dry. Musculoskeletal: Range of motion: limited in left leg. 18:01 Reassessment: Patient and/or family updated on plan of care and expected duration. Pain rs5 level reassessed. Patient is alert, oriented x 3, equal unlabored respirations, skin warm/dry/pink. 18:40 Reassessment: to bedside for conscious sedation consent form, risks of conscious rs5 sedation explained to pt, pt signed consciouse sedation consent form . 18:41 Reassessment: Patient and/or family updated on plan of care and expected duration. Pain rs5 level reassessed. Patient is alert, oriented x 3, equal unlabored respirations, skin warm/dry/pink. conscious sedation consent form signed by provider . 19:00 Reassessment: to bedside for conscious sedation with provider, pt placed on monitor and rs5 on oxygen, crash cart and splint supplies at bedside. Time out prior to sedation completed by me. . 19:15 Reassessment: Patient and/or family updated on plan of care and expected duration. Pain kj2 level reassessed. Patient is alert, oriented x 3, equal unlabored respirations, skin warm/dry/pink. 19:17 Reassessment: Patient and/or family updated on plan of care and expected duration. Pain rs5 level reassessed. Patient is alert, oriented x 3, equal unlabored respirations, skin warm/dry/pink. 19:54 Reassessment: Patient appears in no apparent distress at this time. Patient and/or kj2 family updated on plan of care and expected duration. Pain level reassessed. patient expressed pain is much less and she feels better. Vital Signs: 16:42 BP 142 / 94; Pulse 87; Resp 22; Temp 98.1(O); Pulse Ox 97% on R/A; MAP 108 mmHg; Pain tm6 10/10; 16:50 BP 149 / 88; Pulse 84; Resp 17; Pulse Ox 99% on R/A; rs5 17:00 BP 157 / 84; Pulse 79; Resp 17; Pulse Ox 98% on R/A; rs5 18:07 BP 137 / 87; Pulse 77; Resp 17; Pulse Ox 98% on R/A; rs5 19:15 BP 152 / 88; Pulse 58; Resp 18; Pulse Ox 98% ; kj2 20:34 BP 130 / 79; Pulse 72; Resp 18; Temp 97.9; Pulse Ox 100% ; kj2 16:42 Pain Scale: Adult tm6 ED Course: 16:28 Patient arrived in ED. im 16:31 Marcela Mike FNP-C is PHCP. kb 16:31 Trung Acosta MD is Attending Physician. kb 16:40 Triage completed. tm6 16:40 Arm band placed on left wrist. tm6 16:45 Patient has correct armband on for positive identification. Placed in gown. Bed in low rs5 position. Call light in reach. Side rails up X2. 16:45 No provider procedures requiring assistance completed. rs5 17:06 Lb Shah, RN is Primary Nurse. rs5 17:28 Tib Fib Left XRAY In Process Unspecified. EDMS 19:19 Ankle Left 2 View XRAY In Process Unspecified. EDMS 19:57 Pradeep Garrido MD is Referral Physician. kb 20:09 Provided Education on: prevention of falls. kj2 20:35 IV discontinued, intact, bleeding controlled, No redness/swelling at site. Pressure kj2 dressing applied. Administered Medications: 16:40 Drug: morphine IVP or IV 4 mg IVP once over 4 mins Route: IVP; Infused Over: 4 mins; rs5 Site: left antecubital; 17:01 Follow up: Response: No adverse reaction; Pain is decreased rs5 16:40 Drug: Ondansetron IVP 4 mg IVP once; over 2 minutes Route: IVP; Site: left antecubital; rs5 20:20 Follow up: Response: No adverse reaction kj2 18:45 Drug: morphine IVP or IV 4 mg IVP once over 4 mins Route: IVP; Infused Over: 4 mins; rs5 Site: right antecubital; 19:05 Follow up: Response: No adverse reaction; Pain is decreased rs5 18:55 Drug: Etomidate IVP 10 mg IVP once Route: IVP; Site: right antecubital; rs5 19:10 Follow up: Response: No adverse reaction rs5 Medication: 18:08 VIS not applicable for this client. rs5 Outcome: 19:57 Discharge ordered by . kb 20:10 Discharged to home via wheelchair, with family, kj2 20:10 Condition: stable 20:10 Discharge instructions given to patient, family, Instructed on discharge instructions, follow up and referral plans. medication usage, Demonstrated understanding of instructions, follow-up care, medications, Prescriptions given X 2, 20:35 Patient left the ED. kj2 Signatures: Dispatcher [employer] EDMS Marcela Mike, FERNANDO-C MOLD PRESSER-Lb Infante RN RN rs5 Jazzmine Sheets Tawney RN RN tm6 Tamra Rush RN RN kj2 Corrections: (The following items were deleted from the chart) 19:15 18:41 Reassessment: Patient and/or family updated on plan of care and expected rs5 duration. Pain level reassessed. Patient is alert, oriented x 3, equal unlabored respirations, skin warm/dry/pink. conscious sedation consent form signed by provider . rs5
[2023-12-17 20:53] VITALS: BP 130/79; TEMP 97.9; O2SAT 100
== END 2023-12-17 20:35 | disposition home or self-care (01) ==
LOC: ER 16:25
PROC: 0QSH34Z Reposition Left Tibia with Internal Fixation Device, Percutaneous Approach (ICD-10-PCS; principal; 2023-12-17)
DX: S82.852A Displaced trimalleolar fracture of left lower leg, initial encounter for closed fracture (principal); W18.30XA Fall on same level, unspecified, initial encounter
CPT/HCPCS: J2405